=== PATIENT | female | born 1995 | race Caucasian/White ===

== ENCOUNTER 2022-02-11 07:25 | Inpatient (IN) ==
[2022-02-11] MEDS ORDERED: OXYTOCIN 30 UNITS/500 ML BAG IV PRN (09:16)
[2022-02-11 09:58] LABS: Hematocrit (blood only) 40.5 % (34.1-44.9); Hemoglobin 13.5 g/dl (12.0-16.0); Mean Corpuscular Hemoglobin 28.7 pg (25.0-34.0); Mean Corpuscular Hgb Conc 33.3 g/dL (32.0-36.0); Mean Corpuscular Volume 86.2 fL (80.0-100.0); Mean Platelet Volume 9.7 fL (9.4-12.3); Platelet Count 208 K/uL (130-400); RDW Standard Deviation 44.1 fL (36.4-46.3); White Blood Count 8.52 K/ul (4.8-10.8)
[2022-02-11] MEDS ORDERED: PENICILLIN G POTASSIUM 6 MU in DEXTROSE 5% 250 ML IV STA (10:11)
[2022-02-11] MEDS ORDERED: DINOPROSTONE 10 MG INSERT PV ONE (10:11)
--- NOTE | 2022-02-11 11:13 | History & Physical Report ---
Date of Service February 11, 2022 Assessment & Plan (1) Post-dates : Plan: Cervidil for cervical ripening (2) COVID-19 affecting in third trimester: Admission and Anticipated Discharge Date Admission Date: February 11, 2022 History of Present Illness Chief Complaint: induction of labor for post dates Primary Care Provider: MATHEW PCP 27 F P0000 at 41 weeks admitted for IOL for post dates . GBS is positive. Covid is positive. course unremarkable. Allergies Allergy/AdvReac Type Severity Reaction Status Date / Time watermelon Allergy Severe Anaphylaxis Verified 02/11/22 11:09 apple Allergy Intermediate Anaphylaxis Verified 02/11/22 11:09 Home Medications Medication Instructions Recorded Confirmed Type ferrous sulfate 27 mg iron tablet 27 mg PO DAILY 02/11/22 02/11/22 History iron,carbonyl 65 mg-vitamin C 125 1 tab PO DAILY 02/11/22 02/11/22 History mg tablet,delayed release (Vitron-C) prenat.vits,mp,[id number] 1 tab PO DAILY 02/11/22 02/11/22 History Patient History Medical History No pertinent past medical history Positive GBS test SARS-CoV-2 positive 02/08/2022 Surgical History [place] teeth extracted Family History Grandmother (Paternal) Breast cancer Other No known health problems Social History Smoking Status: Never smoker Hx Alcohol Use: No Hx Substance Use: No Preferred Language: Khmer Communication Ability: Effective Linen Tech Required: No Beliefs That Will Affect Care: None marital status: marital status details: Mike Mari Current Living Situation: Spouse current occupational status: employed 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 [employer] Other Information That Helps Us Care for You: No Feels Safe at Home: Yes Safety Concerns: Feels Safe At This Time Assistive Devices: None 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 neg Review of Systems All systems reviewed & are unremarkable except as noted in HPI & below Physical Exam Constitutional: WD/WN, vitals as above Eyes: PERRL, conjunctivae normal, anicteric sclerae Respiratory: normal respiratory effort, lungs clear to auscultation Cardiovascular: RRR, no murmur, no edema Gastrointestinal (Abdomen): normal bowel sounds, soft, nontender, no hepatosplenomegaly Inspection/Auscultation: abdomen normal to inspection Musculoskeletal: Extremities: extremities normal to inspection no edema Skin: no rashes, warm and dry Neurologic: patellar DTR's 2+ bilat, sensation intact Psychiatric: A+Ox3, euthymic affect Genitourinary: normal external appearance OB Exam Abdomen: + fundal height and + vertex Manual OB Exam: + cervical dilation 1 cm, + cervical effacement 50% and + station high OB Exam Monitor Tracing: + external FHT monitor used, + external uterine monitor used and + category I posterior and firm Cervidil 10 mg placed vaginally Results & Data ([facility]) Vital Signs (Past 12 Hours) Vital Signs Temp Pulse Resp BP 02/11/22 08:11 36.9 C 20 02/11/22 10:41 94 H 02/11/22 10:41 36.9 C 94 H 18 136/79 02/11/22 07:54 125 H 135/89 Laboratory Results Laboratory Results - last 72 hr 02/11/22 09:35 WBC 8.52 RBC 4.70 Hgb 13.5 Hct 40.5 MCV 86.2 MCH 28.7 MCHC 33.3 RDW Std Deviation 44.1 RDW Coeff of Yogi 14.0 Plt Count 208 MPV 9.7 Code Status & VTE Plan VTE Prophylaxis Plan VTE Prophylaxis will be ordered: No Monitoring External Monitor Cat 1 no contractions noted
[2022-02-11] MEDS: LACTATED RINGER'S 1,000 ML IV PRN ×3 (14:49→23:47)
[2022-02-11] MEDS: BUTORPHANOL TARTRATE 1 MG/ML VIAL IV PRN ×3 (15:55→20:27)
[2022-02-11] MEDS ORDERED: fentaNYL citrate 100 MCG/2 ML VIAL ONE (21:16)
[2022-02-11] MEDS ORDERED: ePHEDrine sulfate 50 MG/ML AMP ONE (21:16)
[2022-02-11] MEDS ORDERED: SODIUM CHLORIDE 0.9% INJ 10 ML VIAL ONE (21:16)
[2022-02-11] MEDS ORDERED: BUPIVACAINE 0.25% 30 ML VIAL ONE (21:16)
[2022-02-11] MEDS ORDERED: LIDOCAINE 2%/EPINEPHRINE 1:200,000 20 ML SDV ONE (21:16)
[2022-02-11] MEDS ORDERED: fentaNYL 2MCG/ML ROPIVACAINE 1.25MG/ML 100 ML BAG EPI ONE (21:17)
[2022-02-11] MEDS ORDERED: ePHEDrine sulfate 50 MG/ML AMP IV PRN (22:34)
[2022-02-11] MEDS ORDERED: NALBUPHINE HCL INJ 10 MG/ML AMP IV PRN (22:34)
[2022-02-11] MEDS ORDERED: ONDANSETRON INJ 2 MG/ML 2 ML VIAL IV PRN (22:34)
[2022-02-11] MEDS ORDERED: diphenhydrAMINE 50 MG/ML VIAL IV PRN (22:34)
[2022-02-11] MEDS ORDERED: NALOXONE HCL 1 MG in SODIUM CHLORIDE 0.9% 1000ML 1,000 ML IV PRN (22:34)
[2022-02-11] MEDS ORDERED: fentaNYL 2MCG/ML ROPIVACAINE 1.25MG/ML 100 ML BAG EPI PRN (22:34)
[2022-02-11] MEDS ORDERED: NALOXONE HCL 0.4 MG/1 ML VIAL/CARP IV PRN (22:34)
--- NOTE | 2022-02-11 22:34 | Anesthesiology Consultation ---
Date of Service February 11, 2022 Assessment & Plan ASA ASA2 Proposed Anesthesia Anesthesia Type: Labor Epidural Risk / Benefits Reviewed With: PT / POA / Parent / Guardian, Accepts Plan and Informed Consent Obtained History Height/Weight Height: 5 ft 6 in Weight: 96.615 kg Allergies Allergy/AdvReac Type Severity Reaction Status Date / Time watermelon Allergy Severe Anaphylaxis Verified 02/11/22 11:09 apple Allergy Intermediate Anaphylaxis Verified 02/11/22 11:09 Medications Home Medications Medication Instructions Recorded Confirmed Last Taken ferrous sulfate 27 mg iron tablet 27 mg PO DAILY 02/11/22 02/11/22 02/11/22 iron,carbonyl 65 mg-vitamin C 125 1 tab PO DAILY 02/11/22 02/11/22 02/11/22 mg tablet,delayed release (Vitron-C) prenat.vits,mp,[id number] 1 tab PO DAILY 02/11/22 02/11/22 02/11/22 Active Medications Generic Name Dose Route Start Last Admin Trade Name Freq PRN Reason Stop Dose Admin Butorphanol Tartrate 1 mg 02/11/22 15:06 02/11/22 20:27 Butorphanol Tartrate 1 Mg/Ml Vial IV 03/13/22 15:05 1 mg Q2HWA PRN Administration Pain Lactated Ringer's 1,000 mls @ 125 mls/hr 02/11/22 09:16 02/11/22 18:23 Lr IV 02/13/22 09:15 125 mls/hr .Q8H PRN Administration L&D Protocol Protocol Past Medical History Medical History Anemia No pertinent past medical history Positive GBS test SARS-CoV-2 positive 02/08/2022 Exercise / Class Metabolic Activity II 4-5 Yardwork/Stairs/Walk up hill Past Family History Family History Grandmother (Paternal) Breast cancer Other No known health problems Past Surgical History Surgical History [place] teeth extracted Past Anesthesia History No Hx of Anesthesia Complications and No Family Hx of Anesthesia Complications History of PONV No Hx of PONV and No Hx of Motion Sickness Social History Smoking Status: Never smoker Hx Alcohol Use: No Hx Substance Use: No Review of Systems denies fever/cough/ colds/ chest pain/ SOB/ ZIA denies ZIA Physical Exam Vital Signs Last Vital Signs Temp 36.9 C 02/11/22 14:45 Pulse 88 02/11/22 22:32 Resp 18 02/11/22 18:29 BP 122/71 02/11/22 22:32 Pulse Ox 95 02/11/22 22:28 ENMT Mouth: no TMJ abnormality and no dentition abnormality Thyromental Distance: > or= 3.5 Finger Breadths Mallampati Class: II Neck neck extension not limited Respiratory normal respiratory effort; no respiratory distress Auscultation: lungs clear to auscultation bilaterally Cardiovascular Rate/Rhythm: regular rate and regular rhythm Neurologic moves all extremities Psychiatric Orientation: alert and oriented x 3 Testing Laboratory Results 02/11/22 09:35
[2022-02-12] MEDS: PENICILLIN G POTASSIUM 3 MU in DEXTROSE 5% 100 ML IV PRN ×2 (01:21→05:18)
[2022-02-12] MEDS ORDERED: OXYTOCIN 30 UNITS/500 ML BAG IV PRN ×2 (04:27→10:34)
--- NOTE | 2022-02-12 07:46 | Obstetrical Progress Note ---
Date of Service February 12, 2022 Assessment & Plan Admission and Anticipated Discharge Date Admission Date: February 11, 2022 Subjective Patient is seen and examined I got sign out from Dr Hahn who admitted her for IOL for postdates. GBS+, COVID+, no symptoms of Covid She has been pushing since 05:50 am FHR categ I VE; head at +3 station, small caput visible at introitus with pushing Continue to monitor closely Anticipate Results & Data ([facility]) Vital Signs (Past 12 Hours) Vital Signs Temp Pulse Resp BP Pulse Ox 02/12/22 07:38 97 02/12/22 07:38 84 02/12/22 07:38 86 131/71 02/12/22 07:37 105 H 87 L 02/12/22 07:33 84 97 02/12/22 07:32 100 H 91 02/12/22 07:28 90 98 02/12/22 07:26 105 H 94 02/12/22 07:23 83 130/68 97 02/12/22 06:30 16 02/12/22 06:30 37.0 C 16 02/12/22 07:18 88 94 02/12/22 07:13 80 97 02/12/22 07:12 80 90 02/12/22 07:08 99 02/12/22 07:08 94 H 02/12/22 07:08 90 127/78 02/12/22 07:03 97 H 99 02/12/22 06:58 96 H 98 02/12/22 06:53 109 H 139/87 98 02/12/22 06:48 98 H 97 02/12/22 06:43 88 98 02/12/22 06:38 92 H 98 02/12/22 06:39 95 H 124/74 02/12/22 06:33 95 H 98 02/12/22 06:28 101 H 98 02/12/22 06:23 96 H 130/64 99 02/12/22 06:18 95 H 99 02/12/22 06:13 99 02/12/22 06:13 118 H 02/12/22 06:13 115 H 94 02/12/22 06:08 99 02/12/22 06:08 102 H 02/12/22 06:08 108 H 151/83 H 02/12/22 06:03 108 H 99 02/12/22 05:58 98 H 99 02/12/22 05:53 100 02/12/22 05:53 104 H 07 05:53 102 H 133/77 02/12/22 05:48 110 H 100 02/12/22 05:43 97 H 99 02/12/22 05:38 117 H 99 02/12/22 05:39 103 H 132/82 02/12/22 05:33 96 H 99 02/12/22 05:28 103 H 97 02/12/22 05:23 97 02/12/22 05:23 104 H 02/12/22 05:23 103 H 130/79 02/12/22 05:19 18 02/12/22 05:19 36.5 C 18 98 02/12/22 05:18 106 H 98 02/12/22 05:13 107 H 99 02/12/22 05:09 100 H 133/79 02/12/22 05:08 107 H 98 02/12/22 05:03 94 H 97 02/12/22 04:58 81 95 02/12/22 04:53 95 H 98 02/12/22 04:54 91 H 108/62 02/12/22 04:48 92 H 96 02/12/22 04:43 101 H 97 02/12/22 04:38 103 H 131/79 97 02/12/22 04:33 114 H 97 02/12/22 04:28 115 H 98 02/12/22 04:23 111 H 98 02/12/22 04:24 112 H 136/83 02/12/22 04:18 112 H 99 02/12/22 04:13 109 H 98 02/12/22 04:10 105 H 133/80 02/12/22 04:08 112 H 98 02/12/22 04:03 114 H 98 02/12/22 03:58 108 H 99 02/12/22 03:53 110 H 97 02/12/22 03:54 121 H 150/90 H 07 03:48 114 H 99 02/12/22 03:43 123 H 98 02/12/22 03:39 114 H 118/75 02/12/22 03:38 118 H 96 02/12/22 03:33 117 H 96 02/12/22 03:28 98 H 95 02/12/22 03:26 98 H 94 02/12/22 03:23 95 02/12/22 03:23 97 H 07 03:23 106 H 128/79 02/12/22 03:18 102 H 95 02/12/22 03:19 108 H 94 02/12/22 03:13 103 H 95 02/12/22 03:08 100 H 137/81 96 02/12/22 03:03 106 H 95 02/12/22 02:58 112 H 96 02/12/22 02:25 18 02/12/22 02:25 36.9 C 18 02/12/22 02:53 104 H 97 02/12/22 02:54 100 H 135/80 02/12/22 02:48 103 H 96 02/12/22 02:43 107 H 96 02/12/22 02:38 108 H 133/80 97 02/12/22 02:33 110 H 97 02/12/22 02:28 111 H 97 02/12/22 02:24 106 H 138/84 02/12/22 02:23 121 H 98 02/12/22 02:18 116 H 98 02/12/22 02:13 111 H 98 02/12/22 02:08 99 02/12/22 02:08 131 H 02/12/22 02:08 106 H 132/78 02/12/22 02:03 106 H 97 02/12/22 01:58 107 H 97 02/12/22 01:54 98 H 128/77 02/12/22 01:53 97 H 96 02/12/22 01:48 101 H 96 02/12/22 01:43 94 H 97 02/12/22 01:38 97 02/12/22 01:38 111 H 02/12/22 01:38 113 H 134/75 02/12/22 01:33 97 H 98 02/12/22 01:28 102 H 97 02/12/22 01:24 120 H 136/82 02/12/22 01:23 106 H 97 02/12/22 01:18 111 H 99 02/12/22 01:13 104 H 96 02/12/22 01:08 96 02/12/22 01:08 77 02/12/22 01:08 91 H 129/72 02/12/22 01:03 80 96 0722 00:58 81 95 02/12/22 00:53 80 123/70 95 02/12/22 00:48 82 96 02/12/22 00:43 85 96 02/12/22 00:38 88 121/69 98 02/12/22 00:36 79 94 02/12/22 00:33 80 95 02/12/22 00:30 81 94 02/12/22 00:28 79 96 02/12/22 00:25 73 94 02/12/22 00:23 83 121/75 96 02/12/22 00:18 94 02/12/22 00:18 74 02/12/22 00:18 78 94 02/12/22 00:13 76 96 02/12/22 00:12 77 94 02/12/22 00:08 95 02/12/22 00:08 81 02/12/22 00:08 78 112/68 02/11/22 22:35 16 02/11/22 22:35 36.8 C 16 02/11/22 23:50 16 02/11/22 23:50 36.8 C 16 02/12/22 00:06 77 94 02/12/22 00:03 81 95 02/12/22 00:01 80 94 02/11/22 23:58 95 02/11/22 23:58 77 02/11/22 23:54 77 02/11/22 23:54 113/69 02/11/22 23:53 96 02/11/22 23:53 73 02/11/22 23:48 96 02/11/22 23:48 76 02/11/22 23:43 97 02/11/22 23:43 76 02/11/22 23:38 98 02/11/22 23:38 85 02/11/22 23:38 90 02/11/22 23:38 121/75 02/11/22 23:33 97 02/11/22 23:33 100 H 02/11/22 23:28 99 02/11/22 23:28 102 H 02/11/22 23:24 94 02/11/22 23:24 88 02/11/22 23:23 94 02/11/22 23:23 84 02/11/22 23:23 93 H 02/11/22 23:23 120/75 02/11/22 23:18 94 02/11/22 23:18 90 02/11/22 23:17 94 02/11/22 23:17 85 02/11/22 23:13 93 02/11/22 23:13 83 02/11/22 23:09 85 02/11/22 23:09 117/71 02/11/22 23:08 93 02/11/22 23:08 86 02/11/22 23:03 94 02/11/22 23:03 87 02/11/22 22:58 95 02/11/22 22:59 94 02/11/22 22:58 85 02/11/22 22:59 83 02/11/22 22:53 96 02/11/22 22:53 90 02/11/22 22:53 92 H 02/11/22 22:53 119/78 02/11/22 22:48 96 02/11/22 22:48 82 02/11/22 22:43 96 02/11/22 22:43 86 02/11/22 22:38 98 02/11/22 22:38 98 H 02/11/22 22:38 121/79 02/11/22 22:36 85 02/11/22 22:36 120/71 02/11/22 22:33 96 02/11/22 22:33 93 H 02/11/22 22:34 99 H 02/11/22 22:34 128/73 02/11/22 22:32 88 02/11/22 22:32 122/71 02/11/22 22:30 101 H 02/11/22 22:30 133/76 02/11/22 22:28 95 02/11/22 22:28 88 02/11/22 22:28 86 02/11/22 22:28 129/66 02/11/22 22:26 86 02/11/22 22:26 127/68 02/11/22 22:23 97 02/11/22 22:23 103 H 02/11/22 22:24 88 02/11/22 22:24 136/71 02/11/22 22:23 104 H 02/11/22 22:23 132/70 02/11/22 22:22 100 H 02/11/22 22:22 137/73 02/11/22 22:19 108 H 02/11/22 22:19 139/75 02/11/22 22:18 97 02/11/22 22:18 100 H 02/11/22 22:15 96 H 02/11/22 22:15 139/72 02/11/22 22:13 97 02/11/22 22:13 113 H 02/11/22 22:13 135/71 02/11/22 22:12 109 H 02/11/22 22:12 141/74 H 02/11/22 22:08 99 02/11/22 22:08 107 H 02/11/22 22:03 99 02/11/22 22:03 106 H 02/11/22 21:58 99 02/11/22 21:58 111 H 02/11/22 21:53 98 02/11/22 21:53 99 H 02/11/22 21:48 96 02/11/22 21:48 103 H 02/11/22 21:46 102 H 02/11/22 21:46 129/72 02/11/22 21:43 98 02/11/22 21:43 96 H 02/11/22 21:38 97 02/11/22 21:38 98 H 02/11/22 21:33 96 02/11/22 21:33 105 H 02/11/22 21:33 122/70 02/11/22 20:34 93 H 02/11/22 20:34 124/63
--- NOTE | 2022-02-12 08:38 | Obstetrical Progress Note ---
Date of Service February 12, 2022 Assessment & Plan Admission and Anticipated Discharge Date Admission Date: February 11, 2022 Subjective Patient is seen and examined She has been pushing, FHR categ I VE; minimal change since last exam, OA Will push on her left side Continue to monitor Results & Data ([facility]) Vital Signs (Past 12 Hours) Vital Signs Temp Pulse Resp BP Pulse Ox 02/12/22 08:33 90 98 02/12/22 08:28 84 93 02/12/22 08:23 98 02/12/22 08:23 73 02/12/22 08:23 105 H 145/113 H 02/12/22 08:22 108 H 93 02/12/22 08:18 85 97 02/12/22 08:17 114 H 91 02/12/22 08:13 97 H 96 02/12/22 08:08 87 121/88 97 02/12/22 08:06 112 H 93 02/12/22 08:03 100 H 98 02/12/22 07:59 114 H 91 02/12/22 07:58 88 96 02/12/22 07:54 81 127/72 02/12/22 07:53 83 98 02/12/22 07:50 109 H 86 L 02/12/22 07:48 86 96 02/12/22 07:43 95 H 97 02/12/22 07:38 97 02/12/22 07:38 84 02/12/22 07:38 86 131/71 02/12/22 07:37 105 H 87 L 02/12/22 07:33 84 97 02/12/22 07:32 100 H 91 02/12/22 07:28 90 98 02/12/22 07:26 105 H 94 02/12/22 07:23 83 130/68 97 02/12/22 06:30 16 02/12/22 06:30 37.0 C 16 02/12/22 07:18 88 94 02/12/22 07:13 80 97 02/12/22 07:12 80 90 02/12/22 07:08 99 02/12/22 07:08 94 H 02/12/22 07:08 90 127/78 02/12/22 07:03 97 H 99 02/12/22 06:58 96 H 98 02/12/22 06:53 109 H 139/87 98 02/12/22 06:48 98 H 97 02/12/22 06:43 88 98 02/12/22 06:38 92 H 98 02/12/22 06:39 95 H 124/74 02/12/22 06:33 95 H 98 02/12/22 06:28 101 H 98 02/12/22 06:23 96 H 130/64 99 02/12/22 06:18 95 H 99 02/12/22 06:13 99 02/12/22 06:13 118 H 02/12/22 06:13 115 H 94 02/12/22 06:08 99 02/12/22 06:08 102 H 02/12/22 06:08 108 H 151/83 H 02/12/22 06:03 108 H 99 02/12/22 05:58 98 H 99 02/12/22 05:53 100 02/12/22 05:53 104 H 02/12/22 05:53 102 H 133/77 02/12/22 05:48 110 H 100 02/12/22 05:43 97 H 99 02/12/22 05:38 117 H 99 02/12/22 05:39 103 H 132/82 02/12/22 05:33 96 H 99 02/12/22 05:28 103 H 97 02/12/22 05:23 97 02/12/22 05:23 104 H 02/12/22 05:23 103 H 130/79 02/12/22 05:19 18 02/12/22 05:19 36.5 C 18 98 02/12/22 05:18 106 H 98 02/12/22 05:13 107 H 99 02/12/22 05:09 100 H 133/79 02/12/22 05:08 107 H 98 02/12/22 05:03 94 H 97 02/12/22 04:58 81 95 02/12/22 04:53 95 H 98 02/12/22 04:54 91 H 108/62 02/12/22 04:48 92 H 96 02/12/22 04:43 101 H 97 02/12/22 04:38 103 H 131/79 97 02/12/22 04:33 114 H 97 02/12/22 04:28 115 H 98 02/12/22 04:23 111 H 98 02/12/22 04:24 112 H 136/83 07/20/22 04:18 112 H 99 02/12/22 04:13 109 H 98 02/12/22 04:10 105 H 133/80 02/12/22 04:08 112 H 98 02/12/22 04:03 114 H 98 02/12/22 03:58 108 H 99 02/12/22 03:53 110 H 97 02/12/22 03:54 121 H 150/90 H 02/12/22 03:48 114 H 99 02/12/22 03:43 123 H 98 02/12/22 03:39 114 H 118/75 02/12/22 03:38 118 H 96 02/12/22 03:33 117 H 96 02/12/22 03:28 98 H 95 02/12/22 03:26 98 H 94 02/12/22 03:23 95 02/12/22 03:23 97 H 02/12/22 03:23 106 H 128/79 02/12/22 03:18 102 H 95 02/12/22 03:19 108 H 94 02/12/22 03:13 103 H 95 02/12/22 03:08 100 H 137/81 96 02/12/22 03:03 106 H 95 02/12/22 02:58 112 H 96 02/12/22 02:25 18 02/12/22 02:25 36.9 C 18 02/12/22 02:53 104 H 97 02/12/22 02:54 100 H 135/80 02/12/22 02:48 103 H 96 02/12/22 02:43 107 H 96 02/12/22 02:38 108 H 133/80 97 02/12/22 02:33 110 H 97 02/12/22 02:28 111 H 97 02/12/22 02:24 106 H 138/84 02/12/22 02:23 121 H 98 02/12/22 02:18 116 H 98 02/12/22 02:13 111 H 98 02/12/22 02:08 99 02/12/22 02:08 131 H 02/12/22 02:08 106 H 132/78 02/12/22 02:03 106 H 97 02/12/22 01:58 107 H 97 02/12/22 01:54 98 H 128/77 02/12/22 01:53 97 H 96 07/20/22 01:48 101 H 96 02/12/22 01:43 94 H 97 02/12/22 01:38 97 02/12/22 01:38 111 H 02/12/22 01:38 113 H 134/75 02/12/22 01:33 97 H 98 02/12/22 01:28 102 H 97 02/12/22 01:24 120 H 136/82 02/12/22 01:23 106 H 97 02/12/22 01:18 111 H 99 02/12/22 01:13 104 H 96 02/12/22 01:08 96 02/12/22 01:08 77 02/12/22 01:08 91 H 129/72 02/12/22 01:03 80 96 02/12/22 00:58 81 95 02/12/22 00:53 80 123/70 95 02/12/22 00:48 82 96 02/12/22 00:43 85 96 02/12/22 00:38 88 121/69 98 02/12/22 00:36 79 94 02/12/22 00:33 80 95 02/12/22 00:30 81 94 02/12/22 00:28 79 96 02/12/22 00:25 73 94 02/12/22 00:23 83 121/75 96 02/12/22 00:18 94 02/12/22 00:18 74 02/12/22 00:18 78 94 02/12/22 00:13 76 96 02/12/22 00:12 77 94 02/12/22 00:08 95 02/12/22 00:08 81 02/12/22 00:08 78 112/68 02/11/22 22:35 16 02/11/22 22:35 36.8 C 16 02/11/22 23:50 16 02/11/22 23:50 36.8 C 16 02/12/22 00:06 77 94 02/12/22 00:03 81 95 02/12/22 00:01 80 94 02/11/22 23:58 95 02/11/22 23:58 77 02/11/22 23:54 77 02/11/22 23:54 113/69 02/11/22 23:53 96 02/11/22 23:53 73 02/11/22 23:48 96 07/19/22 23:48 76 02/11/22 23:43 97 02/11/22 23:43 76 02/11/22 23:38 98 02/11/22 23:38 85 02/11/22 23:38 90 02/11/22 23:38 121/75 02/11/22 23:33 97 02/11/22 23:33 100 H 02/11/22 23:28 99 02/11/22 23:28 102 H 02/11/22 23:24 94 02/11/22 23:24 88 02/11/22 23:23 94 02/11/22 23:23 84 02/11/22 23:23 93 H 02/11/22 23:23 120/75 02/11/22 23:18 94 02/11/22 23:18 90 02/11/22 23:17 94 02/11/22 23:17 85 02/11/22 23:13 93 02/11/22 23:13 83 02/11/22 23:09 85 02/11/22 23:09 117/71 02/11/22 23:08 93 02/11/22 23:08 86 02/11/22 23:03 94 02/11/22 23:03 87 02/11/22 22:58 95 02/11/22 22:59 94 02/11/22 22:58 85 02/11/22 22:59 83 02/11/22 22:53 96 02/11/22 22:53 90 02/11/22 22:53 92 H 02/11/22 22:53 119/78 02/11/22 22:48 96 02/11/22 22:48 82 02/11/22 22:43 96 02/11/22 22:43 86 02/11/22 22:38 98 02/11/22 22:38 98 H 02/11/22 22:38 121/79 02/11/22 22:36 85 02/11/22 22:36 120/71 02/11/22 22:33 96 02/11/22 22:33 93 H 02/11/22 22:34 99 H 02/11/22 22:34 128/73 02/11/22 22:32 88 02/11/22 22:32 122/71 02/11/22 22:30 101 H 07/19/22 22:30 133/76 02/11/22 22:28 95 02/11/22 22:28 88 02/11/22 22:28 86 02/11/22 22:28 129/66 02/11/22 22:26 86 02/11/22 22:26 127/68 02/11/22 22:23 97 02/11/22 22:23 103 H 02/11/22 22:24 88 02/11/22 22:24 136/71 02/11/22 22:23 104 H 02/11/22 22:23 132/70 02/11/22 22:22 100 H 02/11/22 22:22 137/73 02/11/22 22:19 108 H 02/11/22 22:19 139/75 02/11/22 22:18 97 02/11/22 22:18 100 H 02/11/22 22:15 96 H 02/11/22 22:15 139/72 02/11/22 22:13 97 02/11/22 22:13 113 H 02/11/22 22:13 135/71 02/11/22 22:12 109 H 02/11/22 22:12 141/74 H 02/11/22 22:08 99 02/11/22 22:08 107 H 02/11/22 22:03 99 02/11/22 22:03 106 H 02/11/22 21:58 99 02/11/22 21:58 111 H 02/11/22 21:53 98 02/11/22 21:53 99 H 02/11/22 21:48 96 02/11/22 21:48 103 H 02/11/22 21:46 102 H 02/11/22 21:46 129/72 02/11/22 21:43 98 02/11/22 21:43 96 H 02/11/22 21:38 97 02/11/22 21:38 98 H 02/11/22 21:33 96 02/11/22 21:33 105 H 02/11/22 21:33 122/70
[2022-02-12] MEDS ORDERED: MINERAL OIL 30 ML UDC ONE (09:05)
[2022-02-12] MEDS ORDERED: LIDOCAINE 2% LOCAL 20 ML VIAL ONE (09:05)
[2022-02-12] MEDS: BUTORPHANOL TARTRATE 1 MG/ML VIAL IV PRN (10:07)
[2022-02-12] MEDS ORDERED: CLINDAMYCIN PHOS 900 MG/6 ML VIAL IV STA (10:09)
[2022-02-12] MEDS ORDERED: CLINDAMYCIN/D5W 900 MG/50 ML PREMIX BAG IV ONE (10:30)
[2022-02-12] MEDS ORDERED: bisacodyL 10 MG SUPP PR PRN (10:34)
[2022-02-12] MEDS ORDERED: HYDROCORTISONE ACETATE 25 MG SUPP PR PRN (10:34)
[2022-02-12] MEDS ORDERED: oxyCODONE/ACETAMINOPHEN 5mg/325mg TAB PO PRN (10:34)
[2022-02-12] MEDS ORDERED: METHYLERGONOVINE MALEATE 0.2 MG/ML AMP IM ONE (10:34)
[2022-02-12] MEDS ORDERED: miSOPROStoL 200 MCG TAB PR ONE (10:34)
[2022-02-12] MEDS ORDERED: MEASLES, MUMPS & RUBELLA VIRUS VIAL SQ ONE (10:34)
[2022-02-12] MEDS ORDERED: BENZOCAINE 20% AER SPR 82.5 GM CAN EXT PRN (10:34)
[2022-02-12] MEDS ORDERED: ACETAMINOPHEN 325 MG TAB PO PRN (10:34)
[2022-02-12] MEDS ORDERED: DIPHTHERIA/TETANUS/PERTUSSIS 0.5 ML SYR/VIAL IM ONE (10:34)
--- NOTE | 2022-02-12 11:46 | Delivery Summary ---
DATE OF DELIVERY: 02/12/2022 DETAILS OF DELIVERY: The patient was found to be fully dilated and desired to push. She pushed for about 3-1/2 hours in the negative pressure room since she was tested positive for COVID 19. She has been asymptomatic with no complaints. Vital signs stable, afebrile. Oxygen saturation has been within normal limits. heart rate had been category 1. After 3-1/2 hours of pushing, the patient was exhausted and wanted help. There was a caput around the head and the caput was visible on the perineum between contractions and more during contraction and pushing. After verbal consent was obtained, a mediolateral episiotomy was opened and then , a Kiwi vacuum was placed on the vertex 1-2 cm in front of small/posterior fontanelle to try to avoid the caput succedaneum. With the patient pushing, it was pulled for about 10 seconds and then it popped off from where the caput skin was. It was taken off completely, and then with the next 3 contractions and the patient pushing, head was delivered without difficulty. There was a nuchal cord around the neck x1, which was reduced and then shoulders were delivered with minimal traction. Baby was handed off to the mother where mouth and nose were suctioned and the cord was clamped x2 and cut at 1 minute delay. The baby was moving and crying vigorously at that point. Then, vagina and perineum were checked for lacerations. There was a right mediolateral episiotomy, which was opened earlier and then there was a hymenal laceration at 2 o'clock position, which extended into the lower vagina about 1-2 cm long. Rectal exam was done and the episiotomy was confirmed to be second- degree. The gloves were changed and then the episiotomy was repaired with 2-0 Vicryl starting from vaginal mucosa, bringing the bulbocavernosus muscles together and the skin in a subcuticular fashion. Excellent hemostasis was achieved and then the laceration at 2 o'clock at the hymen and the lower vagina was repaired with 2-0 Vicryl in a running fashion. There was some oozing around it and it was repaired with [id number] stitches until the bleeding stopped. Rest of the vagina and perineum was intact. The bladder was drained, about 300 mL of clear urine was obtained. Then, we waited about 35 minutes for the placenta which was partially detached in middle/ low uterine cavity. With manual examination, placenta was found to be partially still attached at the fundal portion. With the patient pushing and my hand holding the lower part of the placenta in the uterine cavity and twisting around clockwise position, the placenta was delivered without difficulty. It was complete and intact, and the uterus was explored and found to be empty, and the lower segment was cleared of all clots and debris. She was started on IV oxytocin and IM Methergine was given, and rectal Cytotec was placed. EBL was 400 mL and the fundus was firm. The mom and baby tolerated the procedure well. Sponge, needle, and instrument count was correct x2. Baby was a viable male infant, Apgars 8/8 and weight is 3970 gr. No complications happened and I was present during whole procedure. Job ID: [id number] MTDD
[2022-02-12] MEDS: METHYLERGONOVINE MALEATE 0.2 MG TAB PO SCH ×3 (12:44→20:12)
--- NOTE | 2022-02-12 13:11 | Anesthesia Procedure Note ---
Date of Service February 12, 2022 Anesthesia Post Epidural Note Vital Signs Vital Signs: Temp Pulse Resp BP Pulse Ox 36.5 C 88 16 118/81 97 02/12/22 10:25 02/12/22 12:25 02/12/22 11:25 02/12/22 12:02/12/22 10:18 Pain Intensity Abdomen: Pain Intensity: 0 Right Hip: Pain Intensity: 0 Notes Mental Status: alert / awake / arousable and participated in evaluation Nausea / Vomiting: adequately controlled Pain: adequately controlled Airway Patency, RR, SpO2: stable & adequate BP & HR: stable & adequate Hydration State: stable & adequate Neuraxial Anesthesia: was administered and sensory block is resolving Anesthetic Complications: no major complications apparent and Pt Satisfied with anesthetic care Epidural: Removed without complications and With tip intact
[2022-02-12] MEDS: miSOPROStoL 50 MCG TAB PO SCH (15:04)
[2022-02-12] MEDS: IBUPROFEN 600 MG TAB PO PRN ×2 (17:41→22:26)
[2022-02-12] MEDS: DOCUSATE SODIUM 100 MG CAP PO SCH (20:12)
[2022-02-13] MEDS: METHYLERGONOVINE MALEATE 0.2 MG TAB PO SCH ×3 (00:47→10:17)
[2022-02-13] MEDS: IBUPROFEN 600 MG TAB PO PRN ×3 (02:41→20:30)
[2022-02-13 07:04] LABS: Hematocrit (blood only) 28.6 % (34.1-44.9); Hemoglobin 9.7 g/dl (12.0-16.0); Mean Corpuscular Hemoglobin 29.5 pg (25.0-34.0); Mean Corpuscular Hgb Conc 33.9 g/dL (32.0-36.0); Mean Corpuscular Volume 86.9 fL (80.0-100.0); Mean Platelet Volume 10.2 fL (9.4-12.3); Platelet Count 183 K/uL (130-400); RDW Coefficient of Variation 14.1 % (11.5-14.5); RDW Standard Deviation 44.4 fL (36.4-46.3); Red Blood Count 3.29 M/uL (3.93-5.22); White Blood Count 13.63 K/ul (4.8-10.8)
[2022-02-13] MEDS: DOCUSATE SODIUM 100 MG CAP PO SCH ×2 (09:28→20:31)
[2022-02-13] MEDS: FERROUS SULFATE 325 MG TAB PO SCH (09:28)
[2022-02-13] MEDS: PRENATAL VITAMIN 1 TAB PO SCH (09:28)
--- NOTE | 2022-02-13 09:59 | Obstetrical Progress Note ---
Date of Service February 13, 2022 Subjective Ambulation: ambulating normally Voiding: no voiding problems Passing Gas:: Yes Diet Tolerance:: regular diet Lochia:: Small Feeding Type:: breast feeding Current Pain Level(1-10): 0 doing well plans for d/c in AM Physical Exam Constitutional WD/WN, vitals as above Gastrointestinal (Abdomen) Inspection/Auscultation: abdomen normal to inspection fundus firm below U. non-tender Musculoskeletal Extremities: extremities normal to inspection no edema. neg Susan's Skin no rashes, warm and dry Neurologic patellar DTR's 2+ bilat, sensation intact Results & Data ([facility]) Vital Signs (Past 12 Hours) Vital Signs Temp Pulse Resp BP Pulse Ox O2 Del Method 02/13/22 03:51 36.8 C 84 18 108/71 96 Room Air 02/12/22 23:49 36.8 C 98 H 20 108/72 96 Room Air Laboratory Results Laboratory Results - last 72 hr 02/11/22 02/13/22 02/13/22 09:35 05:40 05:40 WBC 8.52 13.63 H RBC 4.70 3.29 L Hgb 13.5 9.7 L D Hct 40.5 28.6 L MCV 86.2 86.9 MCH 28.7 29.5 MCHC 33.3 33.9 RDW Std Deviation 44.1 44.4 RDW Coeff of Yogi 14.0 14.1 Plt Count 208 183 MPV 9.7 10.2 Blood Type A Negative Antibody Screen NEGATIVE Screen Negative
[2022-02-13] MEDS ORDERED: bisacodyL 5 MG TABEC PO SCH (20:00)
[2022-02-14] MEDS: IBUPROFEN 600 MG TAB PO PRN ×3 (05:10→12:28)
--- NOTE | 2022-02-14 07:31 | Obstetrical Progress Note ---
Date of Service February 14, 2022 Assessment & Plan Admission and Anticipated Discharge Date Admission Date: February 11, 2022 Subjective Patient is seen and examined. She feels well, no complaints. Ambulating without dizziness Voiding without difficulty Tolerating regular diet with out N&V Bleeding is minimal No fever/ chills/ CP/ SOB/ N&V/ Leg pain Breast feeding without problems 02/13/22 Range/Units 05:40 Blood Type A Negative Antibody Screen NEGATIVE Screen Negative (Negative) Lab Results 02/11/22 02/13/22 02/13/22 Range/Units 09:35 05:40 05:40 WBC 8.52 13.63 H (4.8-10.8) K/ul RBC 4.70 3.29 L (3.93-5.22) M/uL Hgb 13.5 9.7 L D (12.0-16.0) g/dl Hct 40.5 28.6 L (34.1-44.9) % MCV 86.2 86.9 (80.0-100.0) fL MCH 28.7 29.5 (25.0-34.0) pg MCHC 33.3 33.9 (32.0-36.0) g/dL RDW Std Deviation 44.1 44.4 (36.4-46.3) fL RDW Coeff of Yogi 14.0 14.1 (11.5-14.5) % Plt Count 208 183 (130-400) K/uL MPV 9.7 10.2 (9.4-12.3) fL Blood Type A Negative Antibody Screen NEGATIVE Screen Negative (Negative) Vital Signs Temp Pulse Pulse Resp BP BP BP 02/14/22 04:30 36.9 C 84 18 113/73 02/14/22 00:14 37.0 C 81 18 103/61 02/13/22 20:14 36.5 C 97 H 16 106/67 02/13/22 15:30 36.6 C 94 H 16 107/68 02/13/22 11:37 36.6 C 88 18 118/81 02/13/22 09:40 36.6 C 98 H 18 111/72 Pulse Ox O2 Del Method 02/14/22 04:30 98 Room Air 02/14/22 00:14 99 Room Air 02/13/22 20:14 98 Room Air 02/13/22 15:30 Room Air 02/13/22 11:37 97 02/13/22 09:40 97 Room Air PE: General: Alert, orientedx3, NAD Abd: soft, NT, fundus firm, below Umbilicus Perineum intact, Lochia rubra minimal Ext; NT, no edema AP: 27 yo s/p , ppd# 2 VSS Afebrile doing well Continue routine care All questions were answered Discussed when to call D/C home , f/u in office Results & Data ([facility]) Vital Signs (Past 12 Hours) Vital Signs Temp Pulse Resp BP BP Pulse Ox O2 Del Method 02/14/22 04:30 36.9 C 84 18 113/73 98 Room Air 02/14/22 00:14 37.0 C 81 18 103/61 99 Room Air 02/13/22 20:14 36.5 C 97 H 16 106/67 98 Room Air
[2022-02-14 08:32] LABS: Basophils # (auto) 0.06 K/uL (0-0.2); Basophils % (auto) 0.6 %; Eosinophils # (auto) 0.15 K/uL (0-0.50); Eosinophils % (auto) 1.5 %; Hematocrit (blood only) 27.5 % (34.1-44.9); Hemoglobin 9.3 g/dl (12.0-16.0); Immature Granulocytes # (auto) 0.05 K/uL (0.00-0.02); Immature Granulocytes % (auto) 0.5 %; Lymphocytes # (auto) 2.19 K/uL (1.2-3.4); Lymphocytes % (auto) 22.4 %; Mean Corpuscular Hemoglobin 29.2 pg (25.0-34.0); Mean Corpuscular Hgb Conc 33.8 g/dL (32.0-36.0); Mean Corpuscular Volume 86.5 fL (80.0-100.0); Mean Platelet Volume 9.9 fL (9.4-12.3); Monocytes # (auto) 0.35 K/uL (0.24-0.82); Monocytes % (auto) 3.6 %; Neutrophils # (auto) 6.98 K/uL (1.4-6.5); Neutrophils % (auto) 71.4 %; Platelet Count 223 K/uL (130-400); RDW Coefficient of Variation 14.5 % (11.5-14.5); RDW Standard Deviation 45.3 fL (36.4-46.3); Red Blood Count 3.18 M/uL (3.93-5.22); White Blood Count 9.78 K/ul (4.8-10.8)
[2022-02-14] MEDS: PRENATAL VITAMIN 1 TAB PO SCH (08:54)
[2022-02-14] MEDS: FERROUS SULFATE 325 MG TAB PO SCH (08:54)
[2022-02-14] MEDS: DOCUSATE SODIUM 100 MG CAP PO SCH (08:54)
== END 2022-02-14 15:04 | disposition home or self-care (01) | DRG 805 ==
LOC: 4S1 07:25 → 4E1 02-12 13:30

== ENCOUNTER 2024-06-15 13:08 | Inpatient (IN) ==
[2024-06-15] MEDS ORDERED: OXYTOCIN 30 UNITS/NSS 30 UNITS/500 ML BAG IV PRN ×2 (15:29→23:47)
[2024-06-15] MEDS ORDERED: CALCIUM CARBONATE 500 MG CHEWABLE TAB PO PRN (15:29)
[2024-06-15] MEDS ORDERED: DINOPROSTONE 10 MG INSERT PV ONE (15:29)
[2024-06-15] MEDS ORDERED: ACETAMINOPHEN 325 MG TAB PO PRN ×2 (15:29→23:47)
[2024-06-15] MEDS ORDERED: LIDOCAINE 1% LOCAL 20 ML VIAL INFIL PRN (15:29)
[2024-06-15 16:06] LABS: Hematocrit (blood only) 38.2 % (37.0-47.0); Hemoglobin 12.9 g/dl (12.0-16.0); Mean Corpuscular Hemoglobin 27.8 pg (25.0-34.0); Mean Corpuscular Hgb Conc 33.8 g/dL (32.0-36.0); Mean Corpuscular Volume 82.3 fL (80.0-100.0); Mean Platelet Volume 9.2 fL (9.4-12.4); Platelet Count 223 K/uL (130-400); RDW Coefficient of Variation 15.9 % (11.5-14.5); RDW Standard Deviation 47.8 fL (36.4-46.3); Red Blood Count 4.64 M/uL (4.20-5.40); White Blood Count 7.88 K/ul (4.8-10.8)
[2024-06-15] MEDS: PENICILLIN GK 6 MU in SODIUM CHLORIDE 0.9% 250 ML IV STA (16:23)
[2024-06-15] MEDS: OXYTOCIN 30 UNITS/NSS 30 UNITS/500 ML BAG IV PRN (16:27)
[2024-06-15] MEDS: LACTATED RINGER'S 1,000 ML IV SCH (17:30)
--- NOTE | 2024-06-15 18:19 | History & Physical Report ---
Date of Service June 15, 2024 Assessment & Plan (1) Post-dates : Plan: 29-year-old -0-0-1 at 40 weeks and 6 days of gestation presenting today for scheduled induction of labor for postdates, Vital signs stable afebrile, heart rate reassuring, GBS positive, Cervix favorable, Plan to admit, monitor, labs, penicillin for GBS and oxytocin per protocol, epidural for pain when patient desires and then AROM when able, Continue to monitor closely, All questions were answered. (2) Positive GBS test: Admission and Anticipated Discharge Date Admission Date: June 15, 2024 History of Present Illness Primary Care Provider: NO PCP late entry from 4 PM, Patient is a 29-year-old -0-0-1 at 40 weeks and 6 days of gestation who was scheduled for induction of labor for postdates. She has no complaints, denies contractions, leakage of fluid, vaginal bleeding. She reports good movements. Her has been uncomplicated except GBS positive. She denies medical problems nor surgeries. She denies any history of smoking, alcohol or drug use. She denies any history of STDs including chlamydia, gonorrhea, herpes. She delivered a viable female in 2021 by myself with a vacuum assistance, patient and baby recovered well with no problems. Allergies Allergy/AdvReac Type Severity Reaction Status Date / Time watermelon Allergy Severe Anaphylaxis Verified 02/11/22 11:09 apple Allergy Intermediate Anaphylaxis Verified 02/11/22 11:09 Home Medications Medication Instructions Recorded Confirmed Type iron,carbonyl 65 mg-vitamin C 125 2 tab PO DAILY 02/11/22 06/15/24 History mg tablet,delayed release (Vitron-C) vits no.124-ferrous fum 1 tab PO DAILY@08 #90 tabs 02/14/22 06/15/24 Rx 27 mg iron-folic acid 800 mcg tablet ( Vitamin) Patient History Medical History Anemia SARS-CoV-2 positive 02/08/2022 Positive GBS test Surgical History [place] teeth extracted Family History Grandmother (Paternal) Breast cancer Other No known health problems Social History Smoking Status: Never smoker Hx Alcohol Use: No Hx Substance Use: No Preferred Language: Puerto Rican Communication Ability: Effective Pug Machine Operator Required: No Beliefs That Will Affect Care: None marital status: marital status details: Mike Mari Current Living Situation: Spouse Current Living Situation Comment: Lives with and son current occupational status: employed 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 [employer] Other Information That Helps Us Care for You: No Feels Safe at Home: Yes Safety Concerns: Feels Safe At This Time Assistive Devices: None Review of Systems as per Subjective / HPI Physical Exam Constitutional: WD/WN, vitals as above well developed, well nourished and comfortable Gastrointestinal (Abdomen): normal bowel sounds, soft, nontender, no hepatosplenomegaly Genitourinary: normal external appearance OB Exam Abdomen: + vertex Manual OB Exam: + cervical dilation 3 cm, + cervical effacement 30% and + station high OB Exam Monitor Tracing: + external uterine monitor used and + category I Results & Data Vital Signs (Past 12 Hours) Vital Signs Temp Pulse Resp BP 06/15/24 18:02 82 06/15/24 18:02 118/67 06/15/24 17:03 20 06/15/24 17:03 20 06/15/24 17:03 87 06/15/24 17:03 121/77 06/15/24 16:14 20 06/15/24 16:14 20 06/15/24 16:14 93 H 06/15/24 16:14 142/86 H 06/15/24 13:46 36.7 C 98 H 20 125/82 06/15/24 13:26 98 H 125/82 06/15/24 13:25 36.7 C Laboratory Results Lab Results 06/15/24 Range/Units 15:44 WBC 7.88 (4.8-10.8) K/ul RBC 4.64 (4.20-5.40) M/uL Hgb 12.9 (12.0-16.0) g/dl Hct 38.2 (37.0-47.0) % MCV 82.3 (80.0-100.0) fL MCH 27.8 (25.0-34.0) pg MCHC 33.8 (32.0-36.0) g/dL RDW Std Deviation 47.8 H (36.4-46.3) fL RDW Coeff of Yogi 15.9 H (11.5-14.5) % Plt Count 223 (130-400) K/uL MPV 9.2 L (9.4-12.4) fL Treponema pallidum Ab Negative (Negative) (1) Post-dates Post-term type: 40-42 weeks gestation Qualified Code(s): O48.0 - Post-term
[2024-06-15] MEDS ORDERED: ROPIVACAINE 0.5% PF 5 MG/ML 20 ML VIAL EPI PRN (18:39)
[2024-06-15] MEDS ORDERED: BUPIVACAINE 0.25% PF 30 ML VIAL EPI PRN (18:39)
[2024-06-15] MEDS ORDERED: ePHEDrine sulfate 50 MG/ML AMP IV PRN (18:39)
[2024-06-15] MEDS ORDERED: LIDOCAINE 2% MPF LOCAL 5 ML VIAL EPI PRN (18:39)
[2024-06-15] MEDS ORDERED: NALBUPHINE HCL INJ 10 MG/ML AMP IV PRN (18:39)
[2024-06-15] MEDS ORDERED: diphenhydrAMINE 50 MG/ML VIAL IV PRN (18:39)
[2024-06-15] MEDS ORDERED: NALOXONE HCL 0.4 MG/1 ML VIAL/CARP IV PRN (18:39)
[2024-06-15] MEDS ORDERED: NALOXONE HCL 1 MG in SODIUM CHLORIDE 0.9% 1,000 ML IV PRN (18:39)
[2024-06-15] MEDS ORDERED: fentANYL 2 MCG/ML BUPIVacaine 0.125%-NSS 100ML BAG EPI PRN (18:39)
[2024-06-15] MEDS ORDERED: SODIUM CHLORIDE 0.9% PF INJ 10 ML VIAL EPI PRN (18:39)
[2024-06-15] MEDS ORDERED: fentaNYL citrate PF 100 MCG/2 ML VIAL EPI PRN (18:39)
--- NOTE | 2024-06-15 18:39 | Anesthesiology Consultation ---
Date of Service June 15, 2024 Assessment & Plan (1) Encounter for pre-operative examination: Chart Review Chart Review: Patient NOT seen in Pre Admission Testing and Acceptable Risk for Labor Epidural Consults Requested none History Height/Weight Height: 5 ft 5 in Weight: 92.87 kg Allergies Allergy/AdvReac Type Severity Reaction Status Date / Time watermelon Allergy Severe Anaphylaxis Verified 02/11/22 11:09 apple Allergy Intermediate Anaphylaxis Verified 02/11/22 11:09 Medications Home Medications Medication Instructions Recorded Confirmed Last Taken iron,carbonyl 65 mg-vitamin C 125 2 tab PO DAILY 02/11/22 06/15/24 06/14/24 05:45 mg tablet,delayed release (Vitron-C) vits no.124-ferrous fum 1 tab PO DAILY@08 #90 tabs 02/14/22 06/15/24 06/14/24 05:45 27 mg iron-folic acid 800 mcg tablet ( Vitamin) Active Medications Generic Name Dose Route Start Last Admin Trade Name Freq PRN Reason Stop Dose Admin Oxytocin 30 units in 500 mls @ 8 mls/hr 06/15/24 15:58 06/15/24 18:00 Pitocin 30 Units/Nss IV 06/17/24 15:57 0.48 units/hr .Q24H PRN 8 mls/hr Labor Induction/Augmentation Titration Protocol 0.48 UNITS/HR Lactated Ringer's 1,000 mls @ 50 mls/hr 06/15/24 16:30 06/15/24 17:30 Lr IV 06/16/24 16:29 50 mls/hr .Q20H NILTON Administration Past Medical History Medical History Anemia SARS-CoV-2 positive 02/08/2022 Positive GBS test Past Family History Family History Grandmother (Paternal) Breast cancer Other No known health problems Past Surgical History Surgical History [place] teeth extracted Social History Smoking Status: Never smoker Hx Alcohol Use: No Hx Substance Use: No Physical Exam Vital Signs Last Vital Signs Temp 98.1 F 06/15/24 13:46 Pulse 74 06/15/24 18:37 Resp 20 06/15/24 17:03 BP 120/59 L 06/15/24 18:37 Pulse Ox 100 06/15/24 18:36 Testing Laboratory Results 06/15/24 15:44
[2024-06-15] MEDS: LIDOCAINE 2%/EPINEPHRINE 1:200,000 20 ML PF ONE (19:01)
[2024-06-15] MEDS: BUPIVACAINE 0.25% PF 30 ML VIAL ONE (19:01)
[2024-06-15] MEDS: fentANYL 2 MCG/ML BUPIVacaine 0.125%-NSS 100ML BAG ONE (19:02)
[2024-06-15] MEDS: PENICILLIN GK 3 MU in DEXTROSE 5% 100 ML IV PRN (20:03)
--- NOTE | 2024-06-15 20:38 | Obstetrical Progress Note ---
Date of Service June 15, 2024 Assessment & Plan Admission and Anticipated Discharge Date Admission Date: June 15, 2024 Subjective Patient is related. She received epidural for pain and now comfortable. second dose of penicillin is being given now. Vaginal exam: she is leaking urine from urethra, cervix is 4 to 5 cm dilated, 70% effaced, with a bulging bag, SROM and during the exam, light meconium, head at -2 station, heart rate category 1, Contractions every 2 to 3 minutes, oxytocin is at 14 milliunits/min, Continue to monitor closely, Anticipate Results & Data Vital Signs (Past 12 Hours) Vital Signs Temp Pulse Resp BP Pulse Ox 06/15/24 20:31 100 06/15/24 20:31 72 06/15/24 20:26 99 06/15/24 20:26 71 06/15/24 20:23 71 06/15/24 20:23 114/58 L 06/15/24 20:21 100 06/15/24 20:21 70 06/15/24 20:16 100 06/15/24 20:16 69 06/15/24 20:11 99 06/15/24 20:11 79 06/15/24 20:10 79 06/15/24 20:10 104/58 L 06/15/24 20:06 100 06/15/24 20:06 80 06/15/24 20:01 99 06/15/24 20:01 89 06/15/24 20:00 16 06/15/24 20:00 16 06/15/24 19:56 100 06/15/24 19:56 100 H 06/15/24 19:53 69 06/15/24 19:53 131/64 06/15/24 19:51 97 06/15/24 19:51 71 06/15/24 19:46 96 06/15/24 19:46 72 06/15/24 19:41 97 06/15/24 19:41 78 06/15/24 19:38 91 H 06/15/24 19:38 126/77 06/15/24 19:36 98 06/15/24 19:36 88 06/15/24 19:31 97 06/15/24 19:31 69 06/15/24 19:30 18 06/15/24 19:30 36.7 C 18 06/15/24 19:26 98 06/15/24 19:26 83 06/15/24 19:22 127/63 06/15/24 19:21 98 06/15/24 19:21 91 H 06/15/24 19:20 81 06/15/24 19:20 127/55 L 06/15/24 19:18 69 06/15/24 19:18 118/63 06/15/24 19:16 96 06/15/24 19:16 77 06/15/24 19:16 81 06/15/24 19:16 126/70 06/15/24 19:14 75 06/15/24 19:14 114/68 06/15/24 19:12 85 06/15/24 19:12 122/64 06/15/24 19:11 98 06/15/24 19:11 82 06/15/24 19:10 87 06/15/24 19:10 128/81 06/15/24 19:08 127/82 06/15/24 19:04 81 06/15/24 19:04 127/82 06/15/24 19:02 93 H 06/15/24 19:02 132/85 06/15/24 19:01 99 06/15/24 19:01 85 06/15/24 19:00 86 06/15/24 19:00 146/84 H 06/15/24 18:58 78 06/15/24 18:58 141/87 H 06/15/24 18:56 100 06/15/24 18:56 86 06/15/24 18:51 100 06/15/24 18:51 99 H 06/15/24 18:46 100 06/15/24 18:46 80 06/15/24 18:41 100 06/15/24 18:41 80 06/15/24 18:37 74 06/15/24 18:37 120/59 L 06/15/24 18:36 100 06/15/24 18:36 77 06/15/24 18:02 82 06/15/24 18:02 118/67 06/15/24 17:03 20 06/15/24 17:03 20 06/15/24 17:03 87 06/15/24 17:03 121/77 06/15/24 16:14 20 06/15/24 16:14 20 06/15/24 16:14 93 H 06/15/24 16:14 142/86 H 06/15/24 13:46 36.7 C 98 H 20 125/82 06/15/24 13:26 98 H 125/82 06/15/24 13:25 36.7 C
[2024-06-15] MEDS: LIDOCAINE 2%/EPINEPHRINE 1:200,000 20 ML PF EPI STA (21:51)
[2024-06-15] MEDS: fentaNYL citrate PF 100 MCG/2 ML VIAL EPI STA (21:51)
[2024-06-15] MEDS: ePHEDrine sulfate 50 MG/ML AMP ONE (21:51)
[2024-06-15] MEDS: fentaNYL citrate PF 100 MCG/2 ML VIAL ONE (21:51)
[2024-06-15] MEDS: BUPIVACAINE 0.25% PF 30 ML VIAL EPI STA (21:51)
[2024-06-15] MEDS: SODIUM CHLORIDE 0.9% PF INJ 10 ML VIAL ONE (21:51)
[2024-06-15] MEDS: SODIUM CHLORIDE 0.9% PF INJ 10 ML VIAL EPI STA (21:52)
[2024-06-15] MEDS ORDERED: BENZOCAINE 20% SPRY 85 APPLN/85 GM CAN EXT PRN (23:47)
[2024-06-15] MEDS ORDERED: DIPHTHER/TETAN/PERTUS Vaccine (Tdap, Adol/Adult) 0.5mL IM ONE (23:47)
[2024-06-15] MEDS ORDERED: bisacodyL 10 MG SUPP PR PRN (23:47)
[2024-06-15] MEDS ORDERED: HYDROCORTISONE ACETATE 25 MG SUPP PR PRN (23:47)
[2024-06-15] MEDS ORDERED: MEASLES, MUMPS & RUBELLA VIRUS VACCINE (MMR) 0.5ML VIAL SQ ONE (23:47)
[2024-06-15] MEDS ORDERED: oxyCODONE/ACETAMINOPHEN 5mg/325mg TAB PO PRN (23:47)
--- NOTE | 2024-06-15 23:51 | Delivery Summary ---
Vaginal Delivery Summary Date of Service June 15, 2024 Vaginal Delivery Summary Patient was found to be fully dilated and desired to push. She pushed for about 10 min and delivered the head and then shoulders with minimal traction. The baby was handed off to the mother. The cord was clampedx2 and cut. The vagina and perineum were checked and found to have 2nd degree perineal laceration. The vaginal mucosa was repaired with 2/0 vicryl and skin on subcuticular fashion. There was a 1st degree laceration at the clitoris that was repaired with 3-0 Vicryl on SH needle. The placenta was delivered spontaneously as intact and complete. The uterus was explored and found to be empty. QBL was 288 ml. The fundus was firm The baby was a viable Female infant, Apgars 8/9, the weight is pending. The mother and the baby tolerated the procedure well. No complications happened and I was present during whole procedure.
[2024-06-16] MEDS: IBUPROFEN 600 MG TAB PO PRN (05:28)
--- NOTE | 2024-06-16 06:18 | Anesthesia Procedure Note ---
Date of Service June 16, 2024 Anesthesia Post Epidural Note Vital Signs Vital Signs: Temp Pulse Resp BP Pulse Ox O2 Del Method 97.9 F 83 16 129/81 98 Room Air 06/16/24 03:02 06/16/24 03:02 06/16/24 03:02 06/16/24 03:02 06/15/24 23:21 06/16/24 03:02 Pain Intensity Abdomen: Pain Intensity: 1 Notes Mental Status: alert / awake / arousable and participated in evaluation Nausea / Vomiting: adequately controlled Pain: adequately controlled Airway Patency, RR, SpO2: stable & adequate BP & HR: stable & adequate Hydration State: stable & adequate Neuraxial Anesthesia: was administered and sensory block is resolving Anesthetic Complications: no major complications apparent and Pt Satisfied with anesthetic care Epidural: Removed without complications and With tip intact
[2024-06-16 06:28] LABS: Hematocrit (blood only) 34.4 % (37.0-47.0); Hemoglobin 11.7 g/dl (12.0-16.0); Mean Corpuscular Hemoglobin 27.9 pg (25.0-34.0); Mean Corpuscular Volume 82.1 fL (80.0-100.0); Mean Platelet Volume 9.5 fL (9.4-12.4); Platelet Count 202 K/uL (130-400); RDW Coefficient of Variation 15.7 % (11.5-14.5); RDW Standard Deviation 46.9 fL (36.4-46.3); Red Blood Count 4.19 M/uL (4.20-5.40); White Blood Count 11.08 K/ul (4.8-10.8)
[2024-06-16] MEDS: FERROUS SULFATE 325 MG TAB PO SCH (07:26)
[2024-06-16] MEDS: PRENATAL VITAMIN 1 TAB PO SCH (07:26)
[2024-06-16] MEDS: DOCUSATE SODIUM 100 MG CAP PO SCH (07:26)
--- NOTE | 2024-06-16 11:41 | Obstetrical Progress Note ---
Date of Service June 16, 2024 Subjective Ambulation: ambulating normally Voiding: no voiding problems Passing Gas:: Yes Diet Tolerance:: regular diet Feeding Type:: breast feeding Current Pain Level(1-10): 0 doing well Physical Exam Constitutional WD/WN, vitals as above Gastrointestinal (Abdomen) Inspection/Auscultation: abdomen normal to inspection abdomen soft and non-tender Musculoskeletal Extremities: extremities normal to inspection Neurologic patellar DTR's 2+ bilat, sensation intact Psychiatric A+Ox3, euthymic affect Results & Data Vital Signs (Past 12 Hours) Vital Signs Temp Pulse Pulse Resp BP BP Pulse Ox 06/16/24 07:25 36.4 C L 70 16 125/81 98 06/16/24 03:02 36.6 C 83 16 129/81 06/16/24 01:30 18 06/16/24 01:29 75 116/63 06/16/24 01:18 67 109/59 L 06/16/24 01:03 71 110/64 06/16/24 01:00 16 06/16/24 00:48 70 115/68 06/16/24 00:33 65 115/67 06/16/24 00:30 18 06/16/24 00:18 72 126/67 06/16/24 00:15 16 06/16/24 00:03 76 123/71 06/16/24 00:00 16 06/15/24 23:48 80 06/15/24 23:48 124/69 06/15/24 23:45 18 O2 Del Method 06/16/24 07:25 Room Air 06/16/24 03:02 Room Air 06/16/24 01:30 06/16/24 01:29 06/16/24 01:18 06/16/24 01:03 06/16/24 01:00 06/16/24 00:48 06/16/24 00:33 06/16/24 00:30 06/16/24 00:18 06/16/24 00:15 06/16/24 00:03 06/16/24 00:00 06/15/24 23:48 06/15/24 23:48 06/15/24 23:45 Laboratory Results all Laboratory Results - last 72 hr 06/15/24 06/16/24 15:44 05:29 WBC 7.88 11.08 H RBC 4.64 4.19 L Hgb 12.9 11.7 L Hct 38.2 34.4 L MCV 82.3 82.1 MCH 27.8 27.9 MCHC 33.8 34.0 RDW Std Deviation 47.8 H 46.9 H RDW Coeff of Yogi 15.9 H 15.7 H Plt Count 223 202 MPV 9.2 L 9.5 Treponema pallidum Ab Negative
--- OUTSIDE RECORDS SUMMARY | 2024-06-16 14:59 | External Medical Summary | Summary of Care ---
Author Name Unknown Organization [facility] Address [address] [place] [address] Phone [phone] Care Team Providers Care Catalyst Operator Gasoline Name Role Phone Unavailable Primary Care Provider Unavailabl e Reason for Visit * Reason Comments Return Visit Encounter Details Date Type Department Care Team (Late st Contact Info) Description 05/31/2024 2:15 PM EST Office Visit Gynecology/Obstetric s [facility] [address] [place] [phone] Elif Causey CRNP [address] [place] [phone] Encounter for supervision of other normal , unspecified trimester*; Rh negative, antepartum; Obesity in , antepartum; Positive GBS test Allergies Active Allergy Reactions Criticality Noted Date Comments No Known Drug Allergy 08/12/2004 documented as of this encounter (statuses as of 05/31/2024) Medications Medication Sig Dispensed Refills Start Date End Date Status Multi-Day Vitamins Oral Tablet Take by mouth 1 Tablet in the morning. Active Vitron-C 65-125 MG Oral Tablet (Iron-Vitamin C 65-125 mg per tab) Take 1 Tablet by mouth in the morning. Active documented as of this encounter (statuses as of 05/31/2024) Active Problems Problem Noted Date Diagnosed Date Positive GBS test 05/20/2024 Overview: Results for orders placed or performed in visit on 05/13/24 GROUP B STREP CULTURE/PCR Specimen: Vaginal Rectal; Swab Result Value Ref Range Group B Strep PCR Result Positive (A) Negative GBS GBSCt 15.6 GBS SPCCt 0.0 Encounter for supervision of other normal , unspecified trimester 12/18/2023 Normal intrauterine , antepartum 2023 Obesity in , antepartum 11/16/2023 Last Assessment & Plan: BMI 30.42 at [facility] Class 1 Rh negative, antepartum 07/01/2021 Overview: Rhogam shot 10/08/23 for 1st tri bleeding Antepartum anemia complicating 021 Overview: HGB 11.2 at [facility], rx iron Acne 10/06/2012 Other allergic rhinitis Overview: ICD-10 update of inactive term Estimated Date of Delivery Comme nts Yes 06/09/2024 Based on last me nstrual period of 09/03/2023 (Exact Date) documented as of this encounter (statuses as of 05/31/2024) Resolved Problems Problem Noted Date Diagnosed Date Resolved Date COVID-19 affecting in third trimester 02/10/2022 03/28/2022 GBS (group B Streptococcus c duran), +RV culture, currently 01/10/2022 03/28/2022 Disorder of placenta in second trimester 10/04/2021 12/05/2021 Rubella non-immune status, antepartum 07/01/2021 03/28/2022 Supervision of normal first 06/28/2021 03/28/2022 Last Assessment & Plan: rhogham given at 28wks 11/13/2021 Suri Galvan LPN Vaginal bleeding in 06/16/2021 06/28/2021 documented as of this encounter (statuses as of 05/31/2024) Immunizations Name Administration Dates Next Due Covid-19 Ad26, Single Dose (Rocio/J&J) 03/01/2021 Hepatitis B, 20+ yrs 1994,1994,01/30 Meningococcal Conjugate Vacc ine (Menactra/Menveo) 01/23/2010 Meningococcal MCV4P Conjugat e Vaccine (Menactra) 01/23/2010 PPD 02/21/2002 RSV Vac., Bivalent, Perfusio n F, Pf,0.5 Ml (Abrysvo) 04/20/2024 TDAP (age 10 and older)(Boostrix) 2023,11/25/2021,11/13/2021,11/07 Varicella Vaccine (Chicken Pox) 01/23/2010 documented as of this encounter Social History Tobacco Use Types Packs/Day Years Used Date Smoking Tobacco: Never Smokeless Tobacco: Never Alcohol Use Standard Drinks/Week Comments No 0 (1 standard drink = 0.6 oz pur e alcohol) PHQ-2 Answer Date Recorded PHQ-2 Score 0 05/28/2020 Hunger Vital Sign Answer Date Recorded Within the past 12 months, y ou worried that your food would run out before you got the money to buy more. Never true 01/07/20 24 Within the past 12 months, t he food you bought just didn't last and you didn't have money to get more. Never true 01/07/2024 [place] Depression Scale Answer Date Recorded [place] Depression Scale Total 7 04/20/2024 The thought of harming myself has occurred to me . Never 04/20/2024 Childcare Answer Date Recorded Do you feel overwhelmed with taking care of a child, family member or friend? No 01/07/2024 Does your family need help f inding childcare? (Household - for ages 0-17 years) Not on file 01/07/2024 Clothing Answer Date Recorded Have you been unable to get clothing when it was really needed? No 01/07/2024 Is your family able to get c lothes or diapers when needed? (Household - for ages 0-17 years) Not on file 01/07/2024 Personal Safety Answer Date Recorded Do you feel unsafe or have concerns for your saf ety? No 01/07/2024 Do you have concerns for you r family's safety? (Household - for ages 0-17 years) Not on file 01/07/2024 Utilities Answer Date Recorded Do you have trouble paying y our heating, water, or electric bill? No 01/07/2024 Is your family able to pay t he heat, water, or electric bill? (Household - for ages 0-17 years) Not on file 01/07/2024 Does your family have access to good internet? (Household - for ages 0-17 years) Not on file 01/07/2024 Employment Status Answer Date Recorded Are you unemployed or without regular income? No 01/07/2024 Does the household have a re gular source of income? (Household - for ages 0-17 years) Not on file 01/07/2024 Social Connections Answer Date Recorded How often do you feel lonely or isolated from those around you? Sometimes 01/07/2024 Financial Resource Strain Answer Date R ecorded Do you have any trouble payi ng for your medications, or do you think you might in the future? No 01/07/2024 Does your family have troubl e paying for medicine? (Household - for ages 0-17 years) Not on file 01/07/2024 Transportation Needs Answer Date Record ed READ ONLY Do you have troubl e getting a ride to medical visits or work? Never True 01/07/2024 Does your family have a hard time getting a ride to doctors visits? (Household - for ages 0-17 years) Not on file 01/07/2024 Has lack of transportation k ept you from medical appointments, meetings, work, or from getting things needed for daily living? Check all that apply. (Adult - for ages 18 years and over) Not on file 01/07/2024 Do you (or your family) have trouble finding or paying for a ride (transportation)? (Household - for ages 0-17 years) Not on file 01/07/2024 Housing Stability Answer Date Recorded Do you currently live in a s helter or have no steady place to sleep at night? No 01/07/2024 READ ONLY Do you think you a re at risk of becoming homeless? No 01/07/2024 Does your family worry about paying for your home or becoming homeless? (Household - for ages 0-17 years) Not on file 0 01/07/2024 Are you homeless or worried that you might be in the future? (Adult - for ages 18 years and over) Not on file Are you (or your family) samreen eless or worried that you might be in the future? (Household - for ages 0-17 years) Not on file Food Insecurity Answer Date Recorded Do you need food for this week? No 01/07/2024 Are you able to get enough f ood for your family? (Household - for ages 0-17 years) Not on file 01/07/2024 Does your family need food t his week? (Household - for ages 0-17 years) Not on file 01/07/2024 Do you always have enough fo od for your family? (Household - for ages 0-17 years) Not on file 01/07/2024 Estimated Date of Delivery Comme nts Yes 06/09/2024 Based on last me nstrual period of 09/03/2023 (Exact Date) Sex and Gender Information Value Date Recorded Sex Assigned at Female 11/13/2021 3:52 PM EDT Gender Identity Female 11/13/2021 3:52 PM EDT Sexual Orientation Straight 11/13/2021 3: 52 PM EDT Job Start Date Occupation Industry Not on file Not on file Not on file documented as of this encounter Last Filed Vital Signs Vital Sign Reading Time Taken Comments Blood Pressure 128/78 05/31/2024 2:10 PM EST Pulse - - Temperature - - Respiratory Rate - - Oxygen Saturation - - Inhaled Oxygen Concentration - - Weight 92.8 kg (204 lb 9.6 oz) 05/31/2024 2:10 P M EST Height - - Body Mass Index 34.05 05/27/2024 4:07 PM EDT documented in this encounter Progress Notes * Elif Causey CRNP - 05/31/2024 2:23 PM EST 38w5d No concerns. Baby is active. No contractions, bleeding, LOF. IOL scheduled. CIRO Lares * Jenny Coronado CMA - 05/31/2024 2:10 PM EST 38w5d Denies any concerns documented in this encounter Plan of Treatment Upcoming Encounters Date Type Department Care Team (Late st Contact Info) Description 06/08/2024 3:15 PM EST Office Visit Gynecology/Obstetrics [facility] [address] [place] [phone] Elif Causey CRNP [address] [place] [phone] Health Maintenance Due Date Last Done Comments Depression Screening 05/28/2021 05/28/2020 HPV/Co-Test 01/30/2024 COVID-19 Vaccine ( season) 2024 03/01/2021 Influenza Vaccine (FLU shot) (#1) 2024 Cervical Cancer Screening 04/07/2026 Pap Smear 04/07/2026 04/07/2023, 06/27, 10/21/2017 DTap/Tdap Vaccines (10 - Td or Tdap) 03/10/2034 03/10/2024, 11/25/2021, 11/13/2021, Additional history exists Hepatitis B Vaccine Completed 1994, 1994, 1994, Additional history exists MENINGOCOCCAL (MENACTRA/MENVEO) Aged Out 01/23/2010, 01/23/2010 No longer eligibl e based on patient's age to complete this topic HPV (Gardasil) Vaccine Aged Out No lo nger eligible based on patient's age to complete this topic Pneumococcal Vaccine: Pediatrics (0 to 5 Years) and At-Risk Patients (6 to 64 Years) Aged Out No longer eligible based on patient's age to complete this topic documented as of this encounter Medical Devices Not on filedocumented as of this encounter Visit Diagnoses Diagnosis Encounter for supervision of other normal , unspecified trimester- Primary Rh negative, antepartum Rhesus isoimmunization affecting management of mother, antepartum condition Obesity in , antepartum Obesity complicating , childbirth, or the puerperium, antepartum condition or complication Positive GBS test documented in this encounter
--- OUTSIDE RECORDS SUMMARY | 2024-06-16 15:00 | External Medical Summary | Summary of Care ---
Author Name Unknown Organization [facility] Address [address] [place] [address] Phone [phone] Care Team Providers Care Train Caller Name Role Phone Unavailable Primary Care Provider Unavailabl e Reason for Visit * Reason Comments Return Visit Encounter Details Date Type Department Care Team (Latest Contact Info) Description 04/20/2024 4:30 PM EDT Office Visit Gynecology/Obstetric s Kristina Childress [address] [place] [address] Marielena Ramirez PA-C [address] [place] [address] Encounter for supervision of other normal , unspecified trimester*; Rh negative, antepartum; Obesity in , antepartum; Encounter for prophylactic immunotherapy for respiratory syncytial virus (RSV) Allergies Active Allergy Reactions Criticality Noted Date Comments No Known Drug Allergy 08/12/2004 documented as of this encounter (statuses as of 04/20/2024) Medications Medication Sig Dispensed Refills Start Date End Date Status Multi-Day Vitamins Oral Tablet Take by mouth 1 Tablet in the morning. Active Vitron-C 65-125 MG Oral Tablet (Iron-Vitamin C 65-125 mg per tab) Take 1 Tablet by mouth in the morning. Active documented as of this encounter (statuses as of 04/20/2024) Active Problems Problem Noted Date Diagnosed Date Encounter for supervision of other normal , unspecified trimester 12/18/2023 Normal intrauterine , antepartum 2023 Obesity in , antepartum 11/16/2023 Last Assessment & Plan: BMI 30.42 at [facility] Class 1 Rh negative, antepartum 07/01/2021 Overview: Rhogam shot 10/08/23 for 1st tri bleeding Antepartum anemia complicating 021 Overview: HGB 11.2 at [facility], rx iron Acne 10/06/2012 Other allergic rhinitis Overview: ICD-10 update of inactive term Estimated Date of Delivery Comme nts Yes 06/09/2024 Based on last me nstrual period of 09/03/2023 (Exact Date) documented as of this encounter (statuses as of 04/20/2024) Resolved Problems Problem Noted Date Diagnosed Date Resolved Date COVID-19 affecting in third trimester 02/10/2022 03/28/2022 GBS (group B Streptococcus c arrier), +RV culture, currently 01/10/2022 03/28/2022 Disorder of placenta in second trimester 10/04/2021 12/05/2021 Rubella non-immune status, antepartum 07/01/2021 03/28/2022 Supervision of normal first 06/28/2021 03/28/2022 Last Assessment & Plan: rhogham given at 28wks 11/13/2021 Suri Galvan LPN Vaginal bleeding in 06/16/2021 06/28/2021 documented as of this encounter (statuses as of 04/20/2024) Immunizations Name Administration Dates Next Due Covid-19 [...] money to get more. Never true 01/07/2024 [place] Depression Scale Answer Date Recorded [place] Depression Scale Total 6 11/16/2023 The thought of harming myself has occurred to me . Never 11/16/2023 Childcare Answer Date Recorded Do you feel [...] Sign Reading Time Taken Comments Blood Pressure 114/72 04/20/2024 4:17 PM EDT Pulse - - Temperature - - Respiratory Rate - - Oxygen Saturation - - Inhaled Oxygen Concentration - - Weight 88.9 kg (196 lb) 04/20/2024 4:17 PM EDT Height 165.1 cm (5' 5") 04/20/2024 4:17 PM EDT Body Mass Index 32.62 04/20/2024 4:17 PM EDT documented in this encounter Progress Notes * Marielena Ramirez PA-C - 04/20/2024 4:35 PM EDT 32w6d No concerns. Becoming more uncomfortable. Denies VB, LOF, contractions. Pos fm. Counseled on flu vaccine. Patient declines. Would like RSV vaccine today. Pt states not a fan of needles and flu has already passed through household so does not want vaccination. RTC in 2 weeks Marielena Ramirez PA-C\\ documented in this encounter Nursing Notes * Tabitha Guillaume LPN - 04/20/2024 4:36 PM EDT Patient here for rsv injection. Patient doing well no complaints. Injection given IM as ordered. Patient tolerated well. Patient to follow up as directed. Patient instructed to call if any complications. Patient verbalized understanding of instructions given and her follow up appt for [facility] Injection site: Left Deltoid Medication Source: Dispensed stock medication * Tabitha Guillaume LPN - 04/20/2024 4:22 PM EDT 32w6d documented in this encounter Plan of Treatment Upcoming Encounters Date Type Department Care Team (Late st Contact Info) Description 05/06/2024 1:30 PM EDT Office Visit Gynecology/Obstetrics [facility] [address] [place] [address] Elif Causey CRNP [address] [place] [address] 05/20/2024 4:30 PM EDT Office Visit Gynecology/Obstetrics [facility] [address] [place] [address] Marielena Ramirez PA-C [address] [place] [address] Health Maintenance Due Date Last Done Comments [...] or the puerperium, antepartum condition or complication Encounter for prophylactic immunotherapy for respiratory syncytial virus (RSV) documented in this encounter
--- OUTSIDE RECORDS SUMMARY | 2024-06-16 15:00 | External Medical Summary | Summary of Care ---
Author Name Unknown Organization [facility] Address [address] [place] [address] Phone [phone] Care Team Providers Care Account Support Rep Name Role Phone Unavailable Primary Care Provider Unavailabl e Reason for Visit * Reason Onset Date Comments Test Results 04/13/2024 Encounter Details Date Type Department Care Team (Late st Contact Info) Description 04/13/2024 Telephone Gynecology/Obstetrics [facility] [address] [facility] [place] [address] Trudy Manuel PA-C [address] [facility] [place] [address] Test Results Allergies Active Allergy Reactions Criticality Noted Date Comments No Known Drug Allergy 08/12/2004 documented as of this encounter (statuses as of 04/13/2024) Medications Medication Sig Dispensed Refills Start Date End Date Status Multi-Day Vitamins Oral Tablet Take by mouth 1 Tablet in the morning. Active Vitron-C 65-125 MG Oral Tablet (Iron-Vitamin C 65-125 mg per tab) Take 1 Tablet by mouth in the morning. Active documented as of this encounter (statuses as of 04/13/2024) Active Problems Problem Noted Date Diagnosed Date Encounter for supervision of other normal , unspecified trimester 12/18/2023 Normal intrauterine , antepartum 2023 Obesity in , antepartum 11/16/2023 Last Assessment & Plan: BMI 30.42 at [facility] Class 1 Rh negative, antepartum 07/01/2021 Overview: Rhogam shot 10/08/23 for 1st tri bleeding Antepartum anemia complicating 021 Overview: HGB 11.2 at [facility], rx iron Acne 10/06/2012 Other allergic rhinitis Overview: ICD-10 update of inactive term Estimated Date of Delivery Comme nts Yes 06/09/2024 Based on last me nstrual period of 09/03/2023 (Exact Date) documented as of this encounter (statuses as of 04/13/2024) Resolved Problems Problem Noted Date Diagnosed Date [...] as of this encounter (statuses as of 04/13/2024) Immunizations Name Administration Dates Next Due Covid-19 Ad26, Single Dose (Rocio/J&J) 03/01/2021 Hepatitis B, 20+ yrs 1994,1994,01/30 Meningococcal Conjugate Vacc ine (Menactra/Menveo) 01/23/2010 Meningococcal MCV4P Conjugat e Vaccine (Menactra) 01/23/2010 PPD 02/21/2002 TDAP (age 10 and older)(Boostrix) 2023,11/25/2021,11/13/2021,11/07 Varicella [...] money to get more. Never true 01/07/2024 [place] Depression Scale Answer Date Recorded [place] Depression Scale Total 6 11/16/2023 The thought [...] on file documented as of this encounter Miscellaneous Notes * Telephone Encounter - Tabitha Guillaume LPN - 04/13/2024 8:17 AM EDT ----- Message from Trudy Manuel sent at 04/13/2024 8:01 AM EDT ----- Please inform patient her recent CBC shows her anemia has improved. Please have her continue takingher PO iron as she has been. Thanks! Trudy Manuel PA-C documented in this encounter Plan of Treatment Upcoming Encounters Date Type Department Care Team (Late st Contact Info) Description 04/20/2024 4:30 PM EDT Office Visit Gynecology/Obstetrics Kristina Childress [address] [place] [address] Marielena Ramirez PA-C [address] [place] [address] Health Maintenance Due Date Last Done Comments [...]
--- OUTSIDE RECORDS SUMMARY | 2024-06-16 15:00 | External Medical Summary | Summary of Care ---
Author Name Unknown Organization [facility] Address [address] [place] [address] Phone [phone] Care Team Providers Care Ammonia Technician Name Role Phone Unavailable Primary Care Provider Unavailabl e Reason for Visit * Reason Comments Return Visit Encounter Details Date Type Department Care Team (Late st Contact Info) Description 05/27/2024 4:30 PM EDT Office Visit Gynecology/Obstetric s Kristina Childress [address] [place] [address] Marielena Ramirez PA-C [address] [place] [address] Rh negative, antepartum*; Obesity in , antepartum; Encounter for supervision of other normal , unspecified trimester; Positive GBS test Allergies Active Allergy Reactions Criticality Noted Date Comments No Known Drug Allergy 08/12/2004 documented as of this encounter (statuses as of 05/27/2024) Medications Medication Sig Dispensed Refills Start Date End Date Status Multi-Day Vitamins Oral Tablet Take by mouth 1 Tablet in the morning. Active Vitron-C 65-125 MG Oral Tablet (Iron-Vitamin C 65-125 mg per tab) Take 1 Tablet by mouth in the morning. Active documented as of this encounter (statuses as of 05/27/2024) Active Problems Problem Noted Date Diagnosed Date [...] Last Assessment & Plan: BMI 30.42 at [facility] Class 1 Rh negative, antepartum 07/01/2021 Overview: Rhogam shot 10/08/23 for 1st tri bleeding Antepartum anemia complicating 021 Overview: HGB 11.2 at [facility], rx iron Acne 10/06/2012 Other allergic rhinitis Overview: ICD-10 update of inactive term Estimated Date of Delivery Comme nts Yes 06/09/2024 Based on last me nstrual period of 09/03/2023 (Exact Date) documented as of this encounter (statuses as of 05/27/2024) Resolved Problems Problem Noted Date Diagnosed Date [...] as of this encounter (statuses as of 05/27/2024) Immunizations Name Administration Dates Next Due Covid-19 [...] money to get more. Never true 01/07/2024 [place] Depression Scale Answer Date Recorded [place] Depression Scale Total 7 04/20/2024 The thought [...] Sign Reading Time Taken Comments Blood Pressure 134/74 05/27/2024 4:07 PM EDT Pulse - - Temperature - - Respiratory Rate - - Oxygen Saturation - - Inhaled Oxygen Concentration - - Weight 92.5 kg (204 lb) 05/27/2024 4:07 PM EDT Height 165.1 cm (5' 5") 05/27/2024 4:07 PM EDT Body Mass Index 33.95 05/27/2024 4:07 PM EDT documented in this encounter Progress Notes * Marielena Ramirez PA-C - 05/27/2024 4:18 PM EDT 38w1d Denies VB, LOF, contractions. Baby is active. Politely declines cervical check. Reviewed IOL, would like to schedule for postdates 41wks. Schedule at [facility] today, given instructions. Date 06/15/2024. Labor precautions and FKC reviewed. Call if <10 movements in 2 hours RTC in 1 week Marielena Ramirez PA-C documented in this encounter Nursing Notes * Tabitha Guillaume LPN - 05/27/2024 4:07 PM EDT 38w1d documented in this encounter Plan of Treatment Upcoming Encounters Date Type Department Care Team (Late st Contact Info) Description 05/31/2024 2:15 PM EST Office Visit [facility]necology[facility]Obst[facility] [address] [place] [address] lEif Causey CRNP [address] [place] [address] Health Maintenance Due Date Last Done Comments [...] as of this encounter Visit Diagnoses Diagnosis Rh negative, antepartum- Primary Rhesus isoimmunization affecting management of mother, antepartum condition Obesity in , antepartum Obesity complicating , childbirth, or the puerperium, antepartum condition or complication Encounter for supervision of other normal , unspecified trimester Positive GBS test documented in this encounter
--- OUTSIDE RECORDS SUMMARY | 2024-06-16 15:00 | External Medical Summary | Summary of Care ---
Author Name Unknown Organization [facility] Address [address] [place] [address] Phone [phone] Care Team Providers Care Feather Trimmer Name Role Phone Unavailable Primary Care Provider Unavailabl e Reason for Visit * Reason Comments Return Visit Encounter Details Date Type Department Care Team (Late st Contact Info) Description 05/06/2024 1:30 PM EDT Office Visit Gynecology/Obstetric s Kristina Childress [address] [place] [address] Elif Causey CRNP [address] [place] [address] Encounter for supervision of other normal in third trimester*; Rh negative, antepartum; Obesity in , antepartum Allergies Active Allergy Reactions Criticality Noted Date Comments No Known Drug Allergy 08/12/2004 documented as of this encounter (statuses as of 05/06/2024) Medications Medication Sig Dispensed Refills Start Date End Date Status Multi-Day Vitamins Oral Tablet Take by mouth 1 Tablet in the morning. Active Vitron-C 65-125 MG Oral Tablet (Iron-Vitamin C 65-125 mg per tab) Take 1 Tablet by mouth in the morning. Active documented as of this encounter (statuses as of 05/06/2024) Active Problems Problem Noted Date Diagnosed Date Encounter for supervision of other normal , unspecified trimester 12/18/2023 Normal intrauterine , antepartum 2023 Obesity in , antepartum 11/16/2023 Last Assessment & Plan: BMI 30.42 at [facility] Class 1 Rh negative, antepartum 07/01/2021 Overview: Rhogam shot 10/08/23 for 1st tri bleeding Antepartum anemia complicating 021 Overview: HGB 11.2 at [facility], rx iron Acne 10/06/2012 Other allergic rhinitis Overview: ICD-10 update of inactive term Estimated Date of Delivery Comme nts Yes 06/09/2024 Based on last me nstrual period of 09/03/2023 (Exact Date) documented as of this encounter (statuses as of 05/06/2024) Resolved Problems Problem Noted Date Diagnosed Date [...] as of this encounter (statuses as of 05/06/2024) Immunizations Name Administration Dates Next Due Covid-19 [...] money to get more. Never true 01/07/2024 [place] Depression Scale Answer Date Recorded [place] Depression Scale Total 7 04/20/2024 The thought [...] Sign Reading Time Taken Comments Blood Pressure 128/66 05/06/2024 1:24 PM EDT Pulse - - Temperature - - Respiratory Rate - - Oxygen Saturation - - Inhaled Oxygen Concentration - - Weight 91.2 kg (201 lb) 05/06/2024 1:24 PM EDT Height 165.1 cm (5' 5") 05/06/2024 1:24 PM EDT Body Mass Index 33.45 05/06/2024 1:24 PM EDT documented in this encounter Progress Notes * Elif Causey CRNP - 05/06/2024 1:34 PM EDT 35w1d Complaints: none Feeling well overall. Good FM. No contractions, bleeding, or LOF. Planning condoms for contraception. CIRO Lares documented in this encounter Nursing Notes * Tabitha Guillaume LPN - 05/06/2024 1:27 PM EDT 35w1d Denies concerns documented in this encounter Plan of Treatment Upcoming Encounters Date Type Department Care Team (Late st Contact Info) Description 05/13/2024 2:45 PM EDT Office Visit Gynecology/Obstetrics [facility] [address] [place] [address] Gina Santiago CRNP [address] [place] [address] 05/20/2024 4:30 PM EDT Office Visit Gynecology/Obstetrics [facility] [address] [place] [address] Marielena Ramirez PA-C [address] [place] [address] 05/27/2024 4:30 PM EDT Office Visit Gynecology/Obstetrics [facility] [address] [place] [address] Marielena Ramirez PA-C [address] [place] [address] 05/31/2024 2:15 PM EST Office Visit Gynecology/Obstetrics [facility] [address] [place] [address] Elif Causey CRNP [address] [place] [address] Health Maintenance Due Date Last Done Comments [...] Diagnosis Encounter for supervision of other normal in third trimester- Primary Rh negative, antepartum Rhesus isoimmunization affecting management of mother, antepartum condition Obesity in , antepartum Obesity complicating , childbirth, or the puerperium, antepartum condition or complication documented in this encounter
--- OUTSIDE RECORDS SUMMARY | 2024-06-16 15:00 | External Medical Summary ---
Author Name Unknown Address Unknown Organization K01:LABORATORY [facility] - [address] [place] [address] Laboratory Report Ordering Provider Test Date Status ELEAZAR GROVE 04/07/2024 13:49:40 Final Observation Date Value Abnormality Reference (Units ) Status SYNC LEUKOCYTES IN BLOOD BY AUTOMATED COUNT 04/07/2024 13:49:40 8.74 4.00-10.80 (K/uL) Final Segs 04/07/2024 13:49:40 70.3 40.0-75.0 (%) Final Lymphs % 04/07/2024 13:49:40 21.9 18.0-42.0 (%) Final Monos 04/07/2024 13:49:40 5.9 1.0-11.0 (%) Final Eosinophils 04/07/2024 13:49:40 0.9 0.0-6.0 (%) Final Basos 04/07/2024 13:49:40 0.5 0.0-2.0 (%) Final Immature Granulocyte, Percent 04/07/2024 13:49:40 0.5 0.0-2.0 (%) Final Absolute Segs 04/07/2024 13:49:40 6.15 1.80-7.70 (K/uL) Final Lymphs, absolute 04/07/2024 13:49:40 1.91 1.00-4.80 (K/ul) Final Monos, Abs 04/07/2024 13:49:40 0.52 0.00-1.10 (K/uL) Final Eos, Abs 04/07/2024 13:49:40 0.08 0.00-0.70 (K/uL) Final Basos, Abs 04/07/2024 13:49:40 0.04 0.00-0.20 (K/uL) Final Immature Granulocytes, Number 04/07/2024 13:49:40 0.04 0.00-0.20 (K/uL) Final Performing Location LABORATORY [facility] - [address] [facility] [address]
--- OUTSIDE RECORDS SUMMARY | 2024-06-16 15:00 | External Medical Summary | Summary of Care ---
Author Name Unknown Organization [facility] Address [address] [place] [address] Phone [phone] Care Team Providers Care Dynamite Shooter Name Role Phone Unavailable Primary Care Provider Unavailabl e Reason for Visit * Reason Comments Return Visit Encounter Details Date Type Department Care Team (Late st Contact Info) Description 05/20/2024 4:30 PM EDT Office Visit Gynecology/Obstetric s Kristina Childress [address] [place] [address] Marielena Ramirez PA-C [address] [place] [address] Encounter for supervision of other normal , unspecified trimester*; Rh negative, antepartum; Obesity in , antepartum; Positive GBS test Allergies Active Allergy Reactions Criticality Noted Date Comments No Known Drug Allergy 08/12/2004 documented as of this encounter (statuses as of 05/20/2024) Medications Medication Sig Dispensed Refills Start Date End Date Status Multi-Day Vitamins Oral Tablet Take by mouth 1 Tablet in the morning. Active Vitron-C 65-125 MG Oral Tablet (Iron-Vitamin C 65-125 mg per tab) Take 1 Tablet by mouth in the morning. Active documented as of this encounter (statuses as of 05/20/2024) Active Problems Problem Noted Date Diagnosed Date [...] Last Assessment & Plan: BMI 30.42 at [facility] Class 1 Rh negative, antepartum 07/01/2021 Overview: Rhogam shot 10/08/23 for 1st tri bleeding Antepartum anemia complicating 021 Overview: HGB 11.2 at [facility], rx iron Acne 10/06/2012 Other allergic rhinitis Overview: ICD-10 update of inactive term Estimated Date of Delivery Comme nts Yes 06/09/2024 Based on last me nstrual period of 09/03/2023 (Exact Date) documented as of this encounter (statuses as of 05/20/2024) Resolved Problems Problem Noted Date Diagnosed Date [...] as of this encounter (statuses as of 05/20/2024) Immunizations Name Administration Dates Next Due Covid-19 [...] money to get more. Never true 01/07/2024 [place] Depression Scale Answer Date Recorded [place] Depression Scale Total 7 04/20/2024 The thought [...] Sign Reading Time Taken Comments Blood Pressure 124/72 05/20/2024 4:16 PM EDT Pulse - - Temperature - - Respiratory Rate - - Oxygen Saturation - - Inhaled Oxygen Concentration - - Weight 91.2 kg (201 lb) 05/20/2024 4:16 PM EDT Height 165.1 cm (5' 5") 05/20/2024 4:16 PM EDT Body Mass Index 33.45 05/20/2024 4:16 PM EDT documented in this encounter Progress Notes * Marielena Ramirez PA-C - 05/20/2024 4:29 PM EDT 37w1d No concerns. Intermittent cramping worse in PM, improved in AM. Denies VB, LOF. Baby is active. Cephalic by bedside sono last visit. GBS positive, pt aware of need for ABX with labor. She was also positive with first . RTC in 1 week Marielena A James, PA-C documented in this encounter Nursing Notes * Tabitha Guillaume LPN - 05/20/2024 4:19 PM EDT 37w1d Denies concerns documented in this encounter Plan of Treatment Upcoming Encounters Date Type Department Care Team (Late st Contact Info) Description 05/27/2024 4:30 PM EDT Office Visit Gynecology/Obstetrics [facility] [address] [place] [address] Marielena Ramirez PA-C [address] [place] [address] 05/31/2024 2:15 PM EST Office Visit Gynecology/Obstetrics [facility] [address] [place] [address] Elif Causey CRNP [address] [place] [address] Health Maintenance Due Date Last Done Comments [...]
--- OUTSIDE RECORDS SUMMARY | 2024-06-16 15:00 | External Medical Summary ---
Author Name Unknown Address Unknown Organization K01:LABORATORY [place] [address] [place] [address] Laboratory Report Ordering Provider Test Date Status WILBUR JULIEN 05/13/2024 10:19:13 Final Observation Date Value Abnormality Reference (Units ) Status Streptococcus agalactiae DNA [Presence] in Specimen by LUCÍA with probe detection 05/13/2024 10:19:13 Positive Abnormal Negative Final Group B Streptococcus detect ed by culture-enhanced PCR (amplified probe). GBS GBSCT - [facility] 05/13/2024 10:19:13 15.6 Final GBS SPCCT - [facility] 05/13/2024 10:19:13 0.0 Final Performing Location LABORATORY [facility] - [facility] [address] [place] [address]
--- OUTSIDE RECORDS SUMMARY | 2024-06-16 15:00 | External Medical Summary | Summary of Care ---
Author Name Unknown Organization [facility] Address [address] [place] [address] Phone [phone] Care Team Providers Care Vehicle Dismantler Name Role Phone Unavailable Primary Care Provider Unavailabl e Reason for Visit * Reason Comments Return Visit Encounter Details Date Type Department Care Team (Late st Contact Info) Description 05/27/2024 4:30 PM EDT Office Visit Gynecology/Obstetric s Kristina Childress [address] [place] [address] Marielena Ramirez PA-C [address] [place] [address] Rh negative, antepartum*; Obesity in , antepartum; [...] Last Assessment & Plan: BMI 30.42 at [facility] Class 1 Rh negative, antepartum 07/01/2021 Overview: Rhogam shot 10/08/23 for 1st tri bleeding Antepartum anemia complicating 021 Overview: HGB 11.2 at [facility], rx iron Acne 10/06/2012 Other allergic rhinitis [...] money to get more. Never true 01/07/2024 [place] Depression Scale Answer Date Recorded [place] Depression Scale Total 7 04/20/2024 The thought [...] to schedule for postdates 41wks. Schedule at [facility] today, given instructions. Date 06/15/2024. Labor precautions [...] 05/31/2024 2:15 PM EST [facility] [address] [place] [address] Elfi Causey CRNP [address] [place] [address] Health Maintenance Due Date Last Done Comments [...]
--- OUTSIDE RECORDS SUMMARY | 2024-06-16 15:00 | External Medical Summary | Summary of Care ---
Author Name Unknown Organization [facility] Address [address] [place] [address] Phone [phone] Care Team Providers Care Marquetry Worker Name Role Phone Unavailable Primary Care Provider Unavailabl e Reason for Visit * Reason Comments Return Visit Encounter Details Date Type Department Care Team (Late st Contact Info) Description 04/07/2024 1:45 PM EDT Office Visit Gynecology/Obstetric s Kristina Childress [address] [place] [address] Elif Causey CRNP [address] [place] [address] Encounter for supervision of other normal , unspecified trimester*; Rh negative, antepartum; Obesity in , antepartum Allergies Active Allergy Reactions Criticality Noted Date Comments No Known Drug Allergy 08/12/2004 documented as of this encounter (statuses as of 04/07/2024) Medications Medication Sig Dispensed Refills Start Date End Date Status Multi-Day Vitamins Oral Tablet Take by mouth 1 Tablet in the morning. Active Vitron-C 65-125 MG Oral Tablet (Iron-Vitamin C 65-125 mg per tab) Take 1 Tablet by mouth in the morning. Active documented as of this encounter (statuses as of 04/07/2024) Active Problems Problem Noted Date Diagnosed Date Encounter for supervision of other normal , unspecified trimester 12/18/2023 Normal intrauterine , antepartum 2023 Obesity in , antepartum 11/16/2023 Last Assessment & Plan: BMI 30.42 at [facility] Class 1 Rh negative, antepartum 07/01/2021 Overview: Rhogam shot 10/08/23 for 1st tri bleeding Antepartum anemia complicating 021 Overview: HGB 11.2 at [facility], rx iron Acne 10/06/2012 Other allergic rhinitis Overview: ICD-10 update of inactive term Estimated Date of Delivery Comme nts Yes 06/09/2024 Based on last me nstrual period of 09/03/2023 (Exact Date) documented as of this encounter (statuses as of 04/07/2024) Resolved Problems Problem Noted Date Diagnosed Date [...] as of this encounter (statuses as of 04/07/2024) Immunizations Name Administration Dates Next Due Covid-19 [...] money to get more. Never true 01/07/2024 [place] Depression Scale Answer Date Recorded [place] Depression Scale Total 6 11/16/2023 The thought [...] Sign Reading Time Taken Comments Blood Pressure 128/74 04/07/2024 1:27 PM EDT Pulse - - Temperature - - Respiratory Rate - - Oxygen Saturation - - Inhaled Oxygen Concentration - - Weight 89.4 kg (197 lb) 04/07/2024 1:27 PM EDT Height - - Body Mass Index 32.78 02/18/2024 3:54 PM EDT documented in this encounter Progress Notes * Elif Causey CRNP - 04/07/2024 1:38 PM EDT 31w No concerns. Baby is active. No contractions, bleeding, LOF. Discussed RSV vaccine with next visit. CIRO Lares * Jenny Coronado CMA - 04/07/2024 1:27 PM EDT 31w0d Denies any concerns documented in this encounter Plan of Treatment Upcoming Encounters Date Type Department Care Team (Late st Contact Info) Description 04/07/2024 2:20 PM EDT Laboratory Laboratory, [address] [place] [phone] Ava Childress Ani [address] [place] [address] Antepartum anemia complicating 04/20/2024 4:30 PM EDT Office Visit Gynecology/Obstetric s Kristina Childress [address] [place] [address] Marielena Ramirez PA-C [address] [place] [address] Health Maintenance Due Date Last Done Comments [...] or the puerperium, antepartum condition or complication Antepartum anemia complicating Anemia, antepartum documented in this encounter
--- OUTSIDE RECORDS SUMMARY | 2024-06-16 15:00 | External Medical Summary | Summary of Care ---
Author Name Unknown Organization [facility] Address [address] [place] [address] Phone [phone] Care Team Providers Care Storage Center Manager Name Role Phone Unavailable Primary Care Provider Unavailabl e Reason for Visit * Reason Comments Outpatient Testing Encounter Details Date Type Department Care Team (Late st Contact Info) Description 04/07/2024 2:20 PM EDT Laboratory Laboratory, [facility] [address] [facility] [place] [phone] [facility] [address] [facility] [place] [address] Antepartum anemia complicating Allergies Active Allergy Reactions Criticality Noted Date [...] & Plan: BMI 30.42 at [facility] Class 1 Rh negative, antepartum 07/01/2021 Overview: Rhogam shot 10/08/23 for 1st tri bleeding Antepartum anemia complicating 021 Overview: HGB 11.2 at [facility], rx iron Acne 10/06/2012 Other allergic [...] money to get more. Never true 01/07/2024 [place] Depression Scale Answer Date Recorded [place] Depression Scale Total 6 11/16/2023 The thought [...] on file documented as of this encounter Plan of Treatment Upcoming Encounters Date Type Department Care Team (Late st Contact Info) Description 04/20/2024 4:30 PM EDT Office Visit Gynecology/Obstetrics Kristina Childress [address] [place] [phone] Marielena Ramirez PA-C [address] [place] [phone] Pending Results Name Type Priority Associated Diagnoses Date /Time CBC WITH WBC DIFFERENTIAL AND ANEMIA REFLEX WORKUP Lab Routine Antepartum anemia complicating 04/07/2024 1:49 PM EDT ANEMIA CBC Lab Routine Antepartum anemia complicating 04/07/2024 1:49 PM EDT DIFFERENTIAL, AUTOMATED Lab Routine Antepartum anemia complicating 04/07/2024 1:49 PM EDT ANEMIA REFLEX CHEMISTRY HOLD Lab Routine Antepartum anemia complicating 04/07/2024 1:49 PM EDT Health Maintenance Due Date Last Done Comments [...] as of this encounter Visit Diagnoses Diagnosis Antepartum anemia complicating Anemia, antepartum documented in this encounter
--- OUTSIDE RECORDS SUMMARY | 2024-06-16 15:00 | External Medical Summary | Summary of Care ---
Author Name Unknown Organization [facility] Address [address] [place] [address] Phone [phone] Care Team Providers Care Outpatient Scheduler Name Role Phone Unavailable Primary Care Provider Unavailabl e Reason for Visit * Reason Comments Return Visit Encounter Details Date Type Department Care Team (Late st Contact Info) Description 05/13/2024 10:00 AM EDT Office Visit Gynecology/Obstetric s Jhaveriemerson Childress [address] [place] [address] Stevan Turner MD [address] [place] [phone] Rh negative, antepartum*; Obesity in , antepartum; Encounter for supervision of other normal , unspecified trimester Allergies Active Allergy Reactions Criticality Noted Date Comments No Known Drug Allergy 08/12/2004 documented as of this encounter (statuses as of 05/13/2024) Medications Medication Sig Dispensed Refills Start Date End Date Status Multi-Day Vitamins Oral Tablet Take by mouth 1 Tablet in the morning. Active Vitron-C 65-125 MG Oral Tablet (Iron-Vitamin C 65-125 mg per tab) Take 1 Tablet by mouth in the morning. Active documented as of this encounter (statuses as of 05/13/2024) Active Problems Problem Noted Date Diagnosed Date Encounter for supervision of other normal , unspecified trimester 12/18/2023 Normal intrauterine , antepartum 2023 Obesity in , antepartum 11/16/2023 Last Assessment & Plan: BMI 30.42 at [facility] Class 1 Rh negative, antepartum 07/01/2021 Overview: Rhogam shot 10/08/23 for 1st tri bleeding Antepartum anemia complicating 021 Overview: HGB 11.2 at [facility], rx iron Acne 10/06/2012 Other allergic rhinitis Overview: ICD-10 update of inactive term Estimated Date of Delivery Comme nts Yes 06/09/2024 Based on last me nstrual period of 09/03/2023 (Exact Date) documented as of this encounter (statuses as of 05/13/2024) Resolved Problems Problem Noted Date Diagnosed Date [...] as of this encounter (statuses as of 05/13/2024) Immunizations Name Administration Dates Next Due Covid-19 [...] money to get more. Never true 01/07/2024 [place] Depression Scale Answer Date Recorded [place] Depression Scale Total 7 04/20/2024 The thought [...] Sign Reading Time Taken Comments Blood Pressure 124/64 05/13/2024 9:59 AM EDT Pulse - - Temperature - - Respiratory Rate - - Oxygen Saturation - - Inhaled Oxygen Concentration - - Weight 91.2 kg (201 lb) 05/13/2024 9:59 AM EDT Height 165.1 cm (5' 5") 05/13/2024 9:59 AM EDT Body Mass Index 33.45 05/13/2024 9:59 AM EDT documented in this encounter Progress Notes * Stevan Turner MD - 05/13/2024 10:25 AM EDT Pt doing well No complaints GBS done Sono done via Exo; cephalic presentation. Post placenta RTC 1 week documented in this encounter Nursing Notes * Jasmina Valdez LPN - 05/13/2024 9:59 AM EDT 36w1d Needs gbs documented in this encounter Plan of Treatment Upcoming Encounters Date Type Department Care Team (Late st Contact Info) Description 05/20/2024 4:30 PM EDT Office Visit Gynecology/Obstetrics [facility] [address] [place] [address] Marielena Ramirez PA-C [address] [place] [address] 05/27/2024 4:30 PM EDT Office Visit Gynecology/Obstetrics [facility] [address] [place] [address] Marielena Ramirez PA-C [address] [place] [address] 05/31/2024 2:15 PM EST Office Visit Gynecology/Obstetrics [facility] [address] [place] [address] Elif Causey CRNP [address] [place] [address] Pending Results Name Type Priority Associated Diagnoses Date /Time GROUP B STREP CULTURE/PCR Lab Routine Rh negative, antepartum 05/13/2024 10:19 AM EDT Scheduled Orders Name Type Priority Associated Diagnoses Orde r Schedule GROUP B STREP CULTURE/PCR Lab Routine Rh negative, antepartum Expected: 05/13/2024, Expires: 05/13/2025 Health Maintenance Due Date Last Done Comments [...] Not on filedocumented as of this encounter Procedures Procedure Name Priority Date/Time Associated Diagnosis Comments POINT OF CARE US - TRANSABDOMINAL Routine 05/13/2024 10:05 AM EDT documented in this encounter Results * POINT OF CARE US - TRANSABDOMINAL (05/13/2024 10:05 AM EDT) Anatomical Region Laterality Modality Abdomen, Body Radiographic Noemi ging 05/13/2024 10:0 5 AM EDT Narrative 05/13/2024 10:22 AM EDT Patient Name: KEV MARI : 1995 (29y) Female Performing Provider: Stevan Turner (digitally signed May 13, 2024 10:22 EDT) Attending: Stevan Turner (digitally signed May 13, 2024 10:22 EDT) [Indications] : position, FHT's [Indications] : [ Assessment] LMP: [ Assessment] ELDA: [ Assessment] Gestation: Single [ Assessment] Fetus Position: Cephalic [ Assessment] Placenta Location: Posterior [ Assessment] Placenta Previa: None [Findings] CONRAD: [Findings] FHT's: 150 [Findings] Other: [Interpretation] : Normal intrauterine Procedure Note Stevna Turner MD - 05/13/2024 Patient Name: KEV MARI : 1995 (29y) Female Performing Provider: Stevan Turner (digitally signed May 13, 2024 10:22EDT) Attending: Stevan Turner (digitally signed May 13, 2024 10:22 EDT) [Indications] : position, FHT's [Indications] : [ Assessment] LMP: [ Assessment] ELDA: [ Assessment] Gestation: Single [ Assessment] Fetus Position: Cephalic [ Assessment] Placenta Location: Posterior [ Assessment] Placenta Previa: None [Findings] CONRAD: [Findings] FHT's: 150 [Findings] Other: [Interpretation] : Normal intrauterine Stevan Turner MD RAD ULTRASOUND documented in this encounter Visit Diagnoses Diagnosis Rh negative, antepartum- Primary Rhesus isoimmunization affecting management of mother, antepartum condition Obesity in , antepartum Obesity complicating , childbirth, or the puerperium, antepartum condition or complication Encounter for supervision of other normal , unspecified trimester documented in this encounter
--- OUTSIDE RECORDS SUMMARY | 2024-06-16 15:00 | External Medical Summary | Summary of Care ---
Author Name Unknown Organization [facility] Address [address] [place] [address] Phone [phone] Care Team Providers Care Diamond Expert Name Role Phone Unavailable Primary Care Provider Unavailabl e Reason for Visit * Reason Onset Date Comments Forms Request 04/25/2024 Encounter Details Date Type Department Care Team (Late st Contact Info) Description 04/25/2024 Telephone Gynecology/Obstetrics [facility] [address] [place] [address] Marielena Ramirez PA-C [address] [place] [address] Forms Request Allergies Active Allergy Reactions Criticality Noted Date Comments No Known Drug Allergy 08/12/2004 documented as of this encounter (statuses as of 04/25/2024) Medications Medication Sig Dispensed Refills Start Date End Date Status Multi-Day Vitamins Oral Tablet Take by mouth 1 Tablet in the morning. Active Vitron-C 65-125 MG Oral Tablet (Iron-Vitamin C 65-125 mg per tab) Take 1 Tablet by mouth in the morning. Active documented as of this encounter (statuses as of 04/25/2024) Active Problems Problem Noted Date Diagnosed Date Encounter for supervision of other normal , unspecified trimester 12/18/2023 Normal intrauterine , antepartum 2023 Obesity in , antepartum 11/16/2023 Last Assessment & Plan: BMI 30.42 at [facility] Class 1 Rh negative, antepartum 07/01/2021 Overview: Rhogam shot 10/08/23 for 1st tri bleeding Antepartum anemia complicating 021 Overview: HGB 11.2 at [facility], rx iron Acne 10/06/2012 Other allergic rhinitis Overview: ICD-10 update of inactive term Estimated Date of Delivery Comme nts Yes 06/09/2024 Based on last me nstrual period of 09/03/2023 (Exact Date) documented as of this encounter (statuses as of 04/25/2024) Resolved Problems Problem Noted Date Diagnosed Date [...] as of this encounter (statuses as of 04/25/2024) Immunizations Name Administration Dates Next Due Covid-19 [...] money to get more. Never true 01/07/2024 [place] Depression Scale Answer Date Recorded [place] Depression Scale Total 6 11/16/2023 The thought [...] encounter Miscellaneous Notes * Telephone Encounter - Marielena Ramirez PA-C - 04/25/2024 3:53 PM EDT Forms signed. Given back to Alisha for faxing. * Telephone Encounter - Alisha Espinoza OSA - 04/25/2024 9:00 AM EDT Forms completed and placed on [employer] desk for signature. documented in this encounter Plan of Treatment Upcoming Encounters Date Type Department Care Team (Late st Contact Info) Description 05/06/2024 1:30 PM EDT [facility] [address] [place] [address] Elif Causey CRNP [address] [place] [address] 05/20/2024 4:30 PM EDT [facility] [address] [place] [address] Marielena Ramirez PA-C [address] [place] [address] Health Maintenance Due Date Last Done Comments [...]
--- OUTSIDE RECORDS SUMMARY | 2024-06-16 15:00 | External Medical Summary ---
Author Name Unknown Address Unknown Organization [id number]:LAB[place] [facility] [place] [facility] [address] [place] [id number] Laboratory Report Ordering Provider Test Date Status ELEAZAR GROVE 04/07/2024 13:49:40 Final Observation Date Value Abnormality Reference (Units ) Status WBC, Total 04/07/2024 13:49:40 8.74 4.00-10.8 0 (K/uL) Final RBC 04/07/2024 13:49:40 4.08 3.85-5.15 (M/uL) Final Hemoglobin 04/07/2024 13:49:40 11.2 Below low normal 12 .0-15.3 (g/dL) Final Anemia reflex testing trigge rs on a HGB < 12.0 for Females and HGB < 13.0 for Males in accordance with the WHO Anemia Guidelines
Anemia reflex testing triggers on a HGB < 12.0 for Females and HGB < 13.0 for Males in accordance with the WHO Anemia Guidelines HCT 04/07/2024 13:49:40 35.2 Below low normal 36. 0-45.2 (%) Final MCV 04/07/2024 13:49:40 86.3 81.5-97.5 (fL) Final MCH 04/07/2024 13:49:40 27.5 27.0-34.0 (pg) Final MCHC 04/07/2024 13:49:40 31.8 32.0-36.0 (g/dL) Final RDW 04/07/2024 13:49:40 17.2 11.5-15.5 (%) Final Platelets 04/07/2024 13:49:40 226 140-400 (K /uL) Final MPV 04/07/2024 13:49:40 9.9 6.6-11.1 ( fL) Final Nucleated erythrocytes/100 leukocytes [Ratio] in Blood by Automated count 04/07/2024 13:49:40 0 <=0 (/100 WBCs) Final Performing Location LABORATORY [facility] [place] [address] [facility] [address]
--- OUTSIDE RECORDS SUMMARY | 2024-06-16 15:01 | External Medical Summary ---
Author Name Unknown Address Unknown Organization [id number]:LABORATORY [facility] [place] [facility] - [address] [place] [address] Laboratory Report Ordering Provider Test Date Status TACOS GALLEGOS 03/10/2024 15:51:24 Final Observation Date Value Abnormality Reference (Units ) Status ABO 03/10/2024 15:51:24 A Final RH 03/10/2024 15:51:24 Negative Final RED BLOOD CELL ANTIBODY SCREEN 03/10/2024 15:51:24 Positive Final Antibodies may delay blood a vailability
If RBC use is anticipated, place a prepare order SPECIMEN EXPIRATION DATE 03/10/2024 15:51:24 03/13/2024 23:5 9 Final Performing Location LABORATORY [facility] - [address] [place] [address]
--- OUTSIDE RECORDS SUMMARY | 2024-06-16 15:01 | External Medical Summary | Summary of Care ---
Author Name Unknown Organization [facility] Address [address] [place] [address] Phone [phone] Care Team Providers Care Retort Or Condenser Press Operator Name Role Phone Unavailable Primary Care Provider Unavailabl e Reason for Visit * Reason Comments Outpatient Testing Encounter Details Date Type Department Care Team (Late st Contact Info) Description 03/10/2024 2:40 PM EDT Laboratory Laboratory, [facility] [address] [facility] [place] [phone] [facility] [address] [place] [address] 24 weeks gestation of ; Rh negative, antepartum; Encounter for supervision of other normal in third trimester Allergies Active Allergy Reactions Criticality Noted Date Comments No Known Drug Allergy 08/12/2004 documented as of this encounter (statuses as of 03/10/2024) Medications Medication Sig Dispensed Refills Start Date End Date Status Multi-Day Vitamins Oral Tablet Take by mouth 1 Tablet in the morning. Active Hospital, Clinic, or Other Facility Administered Medication Ordered Dose Route Frequency Start Date End Date Status Rho D Immune Globulin (Rhophylac) inj 300 mcgIndications:Rh negative, antepartum 300 mcg IM ONCE 03/10/2024 03/11/2024 Active documented as of this encounter (statuses as of 03/10/2024) Active Problems Problem Noted Date Diagnosed Date Encounter for supervision of other normal , unspecified trimester 12/18/2023 Normal intrauterine , antepartum 2023 Obesity in , antepartum 11/16/2023 Last Assessment & Plan: BMI 30.42 at [facility] Class 1 Rh negative, antepartum 07/01/2021 Overview: Rhogam shot 10/08/23 for 1st tri bleeding Acne 10/06/2012 Other allergic rhinitis Overview: ICD-10 update of inactive term Estimated Date of Delivery Comme nts Yes 06/09/2024 Based on last me nstrual period of 09/03/2023 (Exact Date) documented as of this encounter (statuses as of 03/10/2024) Resolved Problems Problem Noted Date Diagnosed Date Resolved Date COVID-19 affecting in third trimester 02/10/2022 03/28/2022 GBS (group B Streptococcus c arrier), +RV culture, currently 01/10/2022 03/28/2022 Disorder of placenta in second trimester 10/04/2021 12/05/2021 Antepartum anemia complicating 07/01/2021 03/28/2022 Overview: HGB 11.2 at [facility], rx iron Rubella non-immune status, antepartum 07/01/2021 03/28/2022 Supervision of normal first 06/28/2021 03/28/2022 Last Assessment & Plan: rhogham given at 28wks 11/13/2021 Suri Galvan LPN Vaginal bleeding in 06/16/2021 06/28/2021 documented as of this encounter (statuses as of 03/10/2024) Immunizations Name Administration Dates Next Due Covid-19 Ad26, Single Dose (Rocio/J&J) 03/01/2021 DTWP - Dipth/Tet/Whole Cell Pertussis 1994 ,1994,1994 DTaP Dipth/Tet/Acell Pertussis (Infanrix), Peds 02/13/1999,07/31/1995 Haemophilius B (HIB), unspecified 1994,1994,1994,04/01 Hepatitis B Vaccine 1994,1994,1993 Hepatitis B, 20+ yrs 1994,1994,01/30 IPV - Polio Virus Vaccine (Inact) 03/06/2004 MMR - Measles/Mumps/Rubella Vaccine 02/13/1999 Measles Vaccine 05/01/1995 Meningococcal Conjugate Vacc ine (Menactra/Menveo) 01/23/2010 Meningococcal MCV4P Conjugat e Vaccine (Menactra) 01/23/2010 Mumps Vaccine 11/03/1995 OPV - Polio Virus Vaccine (Oral) 1994,01/1994,1994 PPD 02/21/2002 Rubella Vaccine 07/31/1995 TB Lizbeth Test 02/21/2002 TDAP (age 10 and older)(Boostrix) 11/25/2021,,11/07/2005 Varicella Vaccine (Chicken Pox) 01/23/2010,03/08 documented as of this encounter Social History [...] money to get more. Never true 01/07/2024 [place] Depression Scale Answer Date Recorded [place] Depression Scale Total 6 11/16/2023 The thought [...] Care Team (Late st Contact Info) Description 03/24/2024 2:00 PM EDT Office Visit Gynecology/Obstetrics [facility] [address] [facility] [place] [address] Trudy Manuel PA-C [address] [place] [address] [place] [phone] Pending Results Name Type Priority Associated Diagnoses Date /Time CBC WITH WBC DIFFERENTIAL AND ANEMIA REFLEX WORKUP Lab Routine 24 weeks gestation of 03/10/2024 3:42 PM EDT SYPHILIS ANTIBODY SCREEN WITH REFLEX TO RPR Lab Routine 24 weeks gestation of 03/10/2024 3:42 PM EDT 50-G GESTATIONAL GLUCOSE, 1 HOUR Lab Routine 24 weeks gestation of 03/10/2024 3:42 PM EDT ANEMIA CBC Lab Routine 24 weeks gestation of 03/10/2024 3:42 PM EDT DIFFERENTIAL, AUTOMATED Lab Routine 24 weeks gestation of 03/10/2024 3:42 PM EDT ANEMIA REFLEX CHEMISTRY HOLD Lab Routine 24 weeks gestation of 03/10/2024 3:42 PM EDT SYPHILIS ANTIBODY SCREEN Lab Routine 24 weeks gestation of 03/10/2024 3:42 PM EDT TYPE AND SCREEN Lab Routine Rh negative, antepartum Encounter for supervision of other normal in third trimester 03/10/2024 3:51 PM EDT Health Maintenance Due Date Last Done Comments Depression Screening 05/28/2021 05/28/2020 COVID-19 Vaccine ( season) 2023 03/01/2021 HPV/Co-Test 01/30/2024 Influenza Vaccine (FLU shot) (#1) 2024 Cervical Cancer Screening 04/07/2026 Pap Smear 04/07/2026 04/07/2023, 06/27, 10/21/2017 DTaP,Tdap,and Td Vaccines (9 - Td or Tdap) 11/26/2031 11/25/2021, 11/13/2021, 11/07/2005, Additional history exists Hepatitis B Vaccine Completed [...] as of this encounter Visit Diagnoses Diagnosis 24 weeks gestation of state, incidental Rh negative, antepartum Rhesus isoimmunization affecting management of mother, antepartum condition Encounter for supervision of other normal in third trimester documented in this encounter
--- OUTSIDE RECORDS SUMMARY | 2024-06-16 15:01 | External Medical Summary ---
Author Name Unknown Address Unknown Organization [id number]:[place] [facility] [place] [facility] [address] [place] [address] Laboratory Report Ordering Provider Test Date Status MATT DESAI 03/10/2024 15:42:17 Final Observation Date Value Abnormality Reference (Units ) Status WBC, Total 03/10/2024 15:42:17 8.97 4.00-10.8 0 (K/uL) Final RBC 03/10/2024 15:42:17 4.04 3.85-5.15 (M/uL) Final Hemoglobin 03/10/2024 15:42:17 10.8 Below low normal 12 .0-15.3 (g/dL) Final Anemia reflex testing trigge rs on a HGB < 12.0 for Females and HGB < 13.0 for Males in accordance with the WHO Anemia Guidelines
Anemia reflex testing triggers on a HGB < 12.0 for Females and HGB < 13.0 for Males in accordance with the WHO Anemia Guidelines HCT 03/10/2024 15:42:17 33.8 Below low normal 36. 0-45.2 (%) Final MCV 03/10/2024 15:42:17 83.7 81.5-97.5 (fL) Final MCH 03/10/2024 15:42:17 26.7 27.0-34.0 (pg) Final MCHC 03/10/2024 15:42:17 32.0 32.0-36.0 (g/dL) Final RDW 03/10/2024 15:42:17 14.0 11.5-15.5 (%) Final Platelets 03/10/2024 15:42:17 246 140-400 (K /uL) Final MPV 03/10/2024 15:42:17 10.1 6.6-11.1 ( fL) Final Nucleated erythrocytes/100 leukocytes [Ratio] in Blood by Automated count 03/10/2024 15:42:17 0 <=0 (/100 WBCs) Final Performing Location [facility] [place] [address] [facility] [address]
--- OUTSIDE RECORDS SUMMARY | 2024-06-16 15:01 | External Medical Summary | Summary of Care ---
Author Name Unknown Organization [facility] Address [address] [place] [address] Phone [phone] Care Team Providers Care Sharepoint Admin Name Role Phone Unavailable Primary Care Provider Unavailabl e Reason for Visit * Reason Comments Return Visit Encounter Details Date Type Department Care Team (Late st Contact Info) Description 03/10/2024 2:15 PM EDT Office Visit Gynecology/Obstetric s Kristina Childress [address] [place] [address] Elif Causey CRNP [address] [place] [phone] Encounter for supervision of other normal in third trimester*; Rh negative, antepartum; Obesity in , antepartum; Need for qbdaoitcve-dlyywze-nw rtussis (Tdap) vaccine Allergies Active Allergy Reactions Criticality Noted Date [...] negative, antepartum 300 mcg IM ONCE 03/10/2024 03/10/2024 Ended documented as of this encounter (statuses as of 03/10/2024) Active Problems Problem Noted Date Diagnosed Date Encounter for supervision of other normal , unspecified trimester 12/18/2023 Normal intrauterine , antepartum 2023 Obesity in , antepartum 11/16/2023 Last Assessment & Plan: BMI 30.42 at [facility] Class 1 Rh negative, antepartum 07/01/2021 [...] complicating 07/01/2021 03/28/2022 Overview: HGB 11.2 at [facility], rx iron Rubella non-immune status, antepartum 07/01/2021 [...] money to get more. Never true 01/07/2024 [place] Depression Scale Answer Date Recorded [place] Depression Scale Total 6 11/16/2023 The thought [...] Sign Reading Time Taken Comments Blood Pressure 130/72 03/10/2024 2:13 PM EDT Pulse - - Temperature - - Respiratory Rate - - Oxygen Saturation - - Inhaled Oxygen Concentration - - Weight 86.8 kg (191 lb 6.4 oz) 03/10/2024 2:13 P M EDT Height - - Body Mass Index 31.85 02/18/2024 3:54 PM EDT documented in this encounter Progress Notes * Jenny Coronado MED ASSIST - 03/10/2024 4:03 PM EDT Patient here for TDAP injection. Patient doing well no complaints. Injection given IM as ordered. Patient tolerated well. Patient to follow up as directed. Patient instructed to call if any complications. Patient verbalized understanding of instructions given and her follow up appt for ALYSON Injection site: Left Deltoid Medication Source: Dispensed stock medication Patient here for RHOGAM injection. Patient doing well no complaints. Injection given IM as ordered.Patient tolerated well. Patient to follow up as directed. Patient instructed to call if any complications. Patient verbalized understanding of instructions given and her follow up appt for ALYSON Injection site: Right Deltoid Medication Source: Dispensed stock medication * Elif Causey CRNP - 03/10/2024 2:23 PM EDT 27w No concerns. Baby is very active. Denies contractions, bleeding, LOF. Glucola, Rhogam, TDAP today. CIRO Lares * Jenny Coronado MED ASSIST - 03/10/2024 2:13 PM EDT 27w0d Denies any concerns. Agreeable to TDAP today documented in this encounter Plan of Treatment Upcoming Encounters Date Type Department Care Team (Late st Contact Info) Description 03/24/2024 2:00 PM EDT Office Visit Gynecology/Obstetrics [facility] [address] [facility] [place] [address] Trudy Manuel PA-C [address] [place] [address] Pending Results Name Type Priority Associated Diagnoses Date /Time TYPE AND SCREEN Lab Routine Rh negative, antepartum Encounter for supervision of other normal in third trimester 03/10/2024 3:51 PM EDT Scheduled Orders Name Type Priority Associated Diagnoses Orde r Schedule TYPE AND SCREEN Lab Routine Rh negative, antepartum Encounter for supervision of other normal in third trimester Expected: 03/10/2024, Expires: 04/10/2025 Health Maintenance Due Date Last Done Comments Depression Screening 05/28/2021 05/28/2020 COVID-19 Vaccine ( season) 2023 03/01/2021 HPV/Co-Test 01/30/2024 Influenza Vaccine (FLU shot) (#1) 2024 Cervical Cancer Screening 04/07/2026 Pap Smear 04/07/2026 04/07/2023, 06/27, 10/21/2017 DTaP,Tdap,and Td Vaccines (10 - Td or Tdap) 03/10/2034 [...] or the puerperium, antepartum condition or complication Need for bysjxcsldx-mdsjpco-pncngxlxx (Tdap) vaccine Need for prophylactic vaccination with combined tulwtuptis-qobqrtg-liffdvfkk (DTP) vaccine documented in this encounter Administered Medications Inactive Administered Medications - up to 3 most recent administrations Medication Order MAR Action Action Date Dose Rate Site Rho D Immune Globulin (Rhophylac) inj 300 mcg 300 mcg, Intramuscular, ONCE, On [place] 03/10/24 at 1500, For 1 dose, Do not administer until type and screen has been collected! 1 MCG = 5 INTERNATIONAL UNITS Given 03/10/2024 4:01 PM EDT 300 mcg Deltoid Right Upper documented in this encounter
--- OUTSIDE RECORDS SUMMARY | 2024-06-16 15:01 | External Medical Summary ---
Author Name Unknown Address Unknown Organization [id number]:LABORATORY [facility] - [address] [place] [address] Laboratory Report Ordering Provider Test Date Status TACOS GALLEGOS 03/10/2024 15:51:24 Final Observation Date Value Abnormality Reference (Units) Status RED BLOOD CELL ANTIBODY IDENTIFICATION 03/10/2024 15:51:24 No new alloantibodies identified Final previous passive anti-D from Rh Immune Globulin Performing Location LABORATORY [facility] - [address] [place] [address]
--- OUTSIDE RECORDS SUMMARY | 2024-06-16 15:01 | External Medical Summary | Summary of Care ---
Author Name Unknown Organization [facility] Address [address] [place] [address] Phone [phone] Care Team Providers Care Gut Sorter Name Role Phone Unavailable Primary Care Provider Unavailabl e Reason for Visit * Reason Onset Date Comments Appointment 03/24/2024 Encounter Details Date Type Department Care Team (Late st Contact Info) Description 03/24/2024 Telephone Gynecology/Obstetrics [facility] [address] [place] [address] Trudy Manuel PA-C [address] [place] [address] Appointment Allergies Active Allergy Reactions Criticality Noted Date Comments No Known Drug Allergy 08/12/2004 documented as of this encounter (statuses as of 03/25/2024) Medications Medication Sig Dispensed Refills Start Date End Date Status Multi-Day Vitamins Oral Tablet Take by mouth 1 Tablet in the morning. Active Vitron-C 65-125 MG Oral Tablet (Iron-Vitamin C 65-125 mg per tab) Take 1 Tablet by mouth in the morning. Active documented as of this encounter (statuses as of 03/25/2024) Active Problems Problem Noted Date Diagnosed Date Encounter for supervision of other normal , unspecified trimester 12/18/2023 Normal intrauterine , antepartum 2023 Obesity in , antepartum 11/16/2023 Last Assessment & Plan: BMI 30.42 at [facility] Class 1 Rh negative, antepartum 07/01/2021 Overview: Rhogam shot 10/08/23 for 1st tri bleeding Antepartum anemia complicating 021 Overview: HGB 11.2 at [facility], rx iron Acne 10/06/2012 Other allergic rhinitis Overview: ICD-10 update of inactive term Estimated Date of Delivery Comme nts Yes 06/09/2024 Based on last me nstrual period of 09/03/2023 (Exact Date) documented as of this encounter (statuses as of 03/25/2024) Resolved Problems Problem Noted Date Diagnosed Date [...] as of this encounter (statuses as of 03/25/2024) Immunizations Name Administration Dates Next Due Covid-19 [...] money to get more. Never true 01/07/2024 [place] Depression Scale Answer Date Recorded [place] Depression Scale Total 6 11/16/2023 The thought [...] encounter Miscellaneous Notes * Telephone Encounter - Gail Vaz OSA - 03/25/2024 1:17 PM EDT Handling in another encounter. * Telephone Encounter - Elena Brewster OSA - 03/24/2024 2:22 PM EDT Pt. Need to return in 2 weeks for a ALYSON would like after noon on a or Thursday. You can callher at [phone] or send a message on my chart documented in this encounter Plan of Treatment Upcoming Encounters Date Type Department Care Team (Late st Contact Info) Description 04/12/2024 2:15 PM EDT Office Visit Gynecology/Obstetrics Kristina Staleys [address] [place] [address] Elif Causey CRNP [address] [place] [address] Health Maintenance Due Date Last Done Comments [...]
--- OUTSIDE RECORDS SUMMARY | 2024-06-16 15:01 | External Medical Summary | Summary of Care ---
Author Name Unknown Organization [facility] Address [address] [place] [address] Phone [phone] Care Team Providers Care Research And Development Researcher Name Role Phone Unavailable Primary Care Provider Unavailabl e Encounter Details Date Type Department Care Team (Late st Contact Info) Description 03/14/2024 Telephone Gynecology/Obstetrics [facility] [address] [facility] [place] [address] Lesly Moreland MD [address] [place] [address] Allergies Active Allergy Reactions Criticality Noted Date Comments No Known Drug Allergy 08/12/2004 documented as of this encounter (statuses as of 03/14/2024) Medications Medication Sig Dispensed Refills Start Date End Date Status Multi-Day Vitamins Oral Tablet Take by mouth 1 Tablet in the morning. Active documented as of this encounter (statuses as of 03/14/2024) Active Problems Problem Noted Date Diagnosed Date Encounter for supervision of other normal , unspecified trimester 12/18/2023 Normal intrauterine , antepartum 2023 Obesity in , antepartum 11/16/2023 Last Assessment & Plan: BMI 30.42 at [facility] Class 1 Rh negative, antepartum 07/01/2021 Overview: Rhogam shot 10/08/23 for 1st tri bleeding Antepartum anemia complicating 021 Overview: HGB 11.2 at [facility], rx iron Acne 10/06/2012 Other allergic rhinitis Overview: ICD-10 update of inactive term Estimated Date of Delivery Comme nts Yes 06/09/2024 Based on last me nstrual period of 09/03/2023 (Exact Date) documented as of this encounter (statuses as of 03/14/2024) Resolved Problems Problem Noted Date Diagnosed Date [...] as of this encounter (statuses as of 03/14/2024) Immunizations Name Administration Dates Next Due Covid-19 [...] money to get more. Never true 01/07/2024 [place] Depression Scale Answer Date Recorded [place] Depression Scale Total 6 11/16/2023 The thought [...] encounter Miscellaneous Notes * Telephone Encounter - Heidy Bowling RN - 03/14/2024 9:43 AM EDT Patient called and made aware. Patient verbalized understanding to all. * Telephone Encounter - Suri Galvan LPN - 03/14/2024 8:28 AM EDT ----- Message from Lesly Moreladn MD sent at 03/14/2024 7:00 AM EDT ----- Please let the patient know I reviewed her third-trimester labs, 1 hours normal, syphilis negative CBC indicates she has iron-deficiency anemia. Would recommend she start taking jpcd-ejs-oamlmfd iron, and Colace as needed Thank you ----- Message ----- From: Frank Couch Automated Processing Sent: 03/10/2024 4:16 PM EDT To: Lesly Moreland MD documented in this encounter Plan of Treatment Upcoming Encounters Date Type Department Care Team (Late st Contact Info) Description 03/24/2024 2:00 PM EDT Office Visit Gynecology/Obstetrics [facility] [address] [facility] [place] [address] Trudy Manuel PA-C [address] [place] [phone] Health Maintenance Due Date Last Done Comments Depression Screening 05/28/2021 05/28/2020 COVID-19 Vaccine (2 24 season) 2023 03/01/2021 HPV/Co-Test 01/30/2024 Influenza Vaccine [...]
--- OUTSIDE RECORDS SUMMARY | 2024-06-16 15:01 | External Medical Summary | Summary of Care ---
Author Name Unknown Organization [facility] Address [address] [place] [address] Phone [phone] Care Team Providers Care Laborer Name Role Phone Unavailable Primary Care Provider Unavailabl e Reason for Visit * Reason Comments Return Visit Encounter Details Date Type Department Care Team (Late st Contact Info) Description 03/24/2024 2:00 PM EDT Office Visit Gynecology/Obstetric [facility] [address] [facility] [place] [address] Trudy Manuel PA[facility]C [address] [facility] [phone] Encounter for supervision of other normal in third trimester*; Obesity in , antepartum; Rh negative, antepartum; Antepartum anemia complicating Allergies Active Allergy Reactions Criticality Noted Date Comments No Known Drug Allergy 08/12/2004 documented as of this encounter (statuses as of 03/24/2024) Medications Medication Sig Dispensed Refills Start Date End Date Status Multi-Day Vitamins Oral Tablet Take by mouth 1 Tablet in the morning. Active Vitron-C 65-125 MG Oral Tablet (Iron-Vitamin C 65-125 mg per tab) Take 1 Tablet by mouth in the morning. Active documented as of this encounter (statuses as of 03/24/2024) Active Problems Problem Noted Date Diagnosed Date Encounter for supervision of other normal , unspecified trimester 12/18/2023 Normal intrauterine , antepartum 2023 Obesity in , antepartum 11/16/2023 Last Assessment & Plan: BMI 30.42 at [facility] Class 1 Rh negative, antepartum 07/01/2021 Overview: Rhogam shot 10/08/23 for 1st tri bleeding Antepartum anemia complicating 021 Overview: HGB 11.2 at [facility], rx iron Acne 10/06/2012 Other allergic rhinitis Overview: ICD-10 update of inactive term Estimated Date of Delivery Comme nts Yes 06/09/2024 Based on last me nstrual period of 09/03/2023 (Exact Date) documented as of this encounter (statuses as of 03/24/2024) Resolved Problems Problem Noted Date Diagnosed Date [...] as of this encounter (statuses as of 03/24/2024) Immunizations Name Administration Dates Next Due Covid-19 [...] money to get more. Never true 01/07/2024 [place] Depression Scale Answer Date Recorded [place] Depression Scale Total 6 11/16/2023 The thought [...] Sign Reading Time Taken Comments Blood Pressure 130/74 03/24/2024 1:56 PM EDT Pulse - - Temperature - - Respiratory Rate - - Oxygen Saturation - - Inhaled Oxygen Concentration - - Weight 87.1 kg (192 lb) 03/24/2024 1:56 PM EDT Height - - Body Mass Index 31.95 02/18/2024 3:54 PM EDT documented in this encounter Progress Notes * Trudy Manuel PA-C - 03/24/2024 2:02 PM EDT Gina Mari is a 29 year old female here for her routine OB appointment at 29w0d Her Estimated Date of Delivery: 06/09/24 REVIEW OF SYSTEMS She affirms movement. Denies vaginal bleeding, LOF, contractions, N/V, headaches, vision changes, RUQ pain. PHYSICAL EXAM: Filed Vitals: 03/24/24 1356 BP: 130/74 Weight: 87.1 kg (192 lb) +FHT 140s Fundal height 29 cm ASSESSMENT/PLAN Encounter for supervision of other normal in third trimester (Primary) Obesity in , antepartum Rh negative, antepartum Antepartum anemia complicating - CBC WITH WBC DIFFERENTIAL AND ANEMIA REFLEX WORKUP; Future; Expected date: 04/07/2024 - Recent CBC - Hgb 10.4. Encouraged to take iron BID. She is agreeable. Will re- check levels in 4 weeks. If Hgb persists below 11, will place BM referral. Supervision of - labor precautions and kick counts reviewed RTO in 2 weeks Trudy Manuel PA-C 03/24/2024 * Jenny Coronado CMA - 03/24/2024 1:56 PM EDT 29w0d Denies any concerns today documented in this encounter Plan of Treatment Scheduled Orders Name Type Priority Associated Diagnoses Orde r Schedule CBC WITH WBC DIFFERENTIAL AND ANEMIA REFLEX WORKUP Lab Routine Antepartum anemia complicating Expected: 04/07/2024, Expires: 03/24/2025 Health Maintenance Due Date Last Done Comments Depression Screening 05/28/2021 05/28/2020 COVID-19 Vaccine (2 - 2022-24 season) 2023 03/01/2021 HPV/Co-Test 01/30/2024 Influenza Vaccine [...] of other normal in third trimester- Primary Obesity in , antepartum Obesity complicating , childbirth, or the puerperium, antepartum condition or complication Rh negative, antepartum Rhesus isoimmunization affecting management of mother, antepartum condition Antepartum anemia complicating Anemia, antepartum documented in this encounter
--- OUTSIDE RECORDS SUMMARY | 2024-06-16 15:01 | External Medical Summary ---
Author Name Unknown Address Unknown Organization [id number]:LABORATORY [facility] - [address] [place] [address] Laboratory Report Ordering Provider Test Date Status MATT DESAI 03/10/2024 15:42:17 Final Observation Date Value Abnormality Reference (Units ) Status Iron 03/10/2024 15:42:17 32 Below low normal 33-151 (ug/dL) Final Iron-binding capacity 03/10/2024 15:42:17 433 Above high normal 250-425 (ug/dL) Final Transferrin Sat % 03/10/2024 15:42:17 7 Below low normal 15-55 (%) Final Performing Location LABORATORY [facility] - [address] [place] [address]
--- OUTSIDE RECORDS SUMMARY | 2024-06-16 15:01 | External Medical Summary ---
Author Name Unknown Address Unknown Organization [id number]:LABORATORY [facility] - [address] [facility] [address] [place] [address] Laboratory Report Ordering Provider Test Date Status GISELLEBANDARPRAFUL 03/10/2024 15:42:17 Final Observation Date Value Abnormality Reference (Units ) Status SYNC LEUKOCYTES IN BLOOD BY AUTOMATED COUNT 03/10/2024 15:42:17 8.97 4.00-10.80 (K/uL) Final Segs 03/10/2024 15:42:17 70.6 40.0-75.0 (%) Final Lymphs % 03/10/2024 15:42:17 22.0 18.0-42.0 (%) Final Monos 03/10/2024 15:42:17 5.4 1.0-11.0 (%) Final Eosinophils 03/10/2024 15:42:17 1.3 0.0-6.0 (%) Final Basos 03/10/2024 15:42:17 0.3 0.0-2.0 (%) Final Immature Granulocyte, Percent 03/10/2024 15:42:17 0.4 0.0-2.0 (%) Final Absolute Segs 03/10/2024 15:42:17 6.33 1.80-7.70 (K/uL) Final Lymphs, absolute 03/10/2024 15:42:17 1.97 1.00-4.80 (K/ul) Final Monos, Abs 03/10/2024 15:42:17 0.48 0.00-1.10 (K/uL) Final Eos, Abs 03/10/2024 15:42:17 0.12 0.00-0.70 (K/uL) Final Basos, Abs 03/10/2024 15:42:17 0.03 0.00-0.20 (K/uL) Final Immature Granulocytes, Number 03/10/2024 15:42:17 0.04 0.00-0.20 (K/uL) Final Performing Location LABORATORY [facility] - [address] [facility] [address]
--- OUTSIDE RECORDS SUMMARY | 2024-06-16 15:01 | External Medical Summary ---
Author Name Unknown Address Unknown Organization [id number]:LABORATORY [facility] - [address] [place] [address] Laboratory Report Ordering Provider Test Date Status MATT DESAI 03/10/2024 15:42:17 Final Observation Date Value Abnormality Reference (Units ) Status Ferritin 03/10/2024 15:42:17 6 Below low normal 13- 150 (ng/mL) Final Performing Location LABORATORY [facility] - [address] [place] [address]
--- OUTSIDE RECORDS SUMMARY | 2024-06-16 15:01 | External Medical Summary ---
Author Name Unknown Address Unknown Organization [id number]:[facility] [place] [address] [facility] [place] [address] Laboratory Report Ordering Provider Test Date Status MATT DESAI 03/10/2024 15:42:17 Final Observation Date Value Abnormality Reference (Units ) Status Treponema pallidum Ab [Presence] in Serum by Immunoassay 03/10/2024 15:42:17 Nonreactive Nonreactive Final No serologic evidence of syp hilis. No additional testing clinicially indicated at this time. Consider repeat testing in 2-4 weeks if acute or primary syphilis is suspected. Performing Location [facility] [place] [address] [place] [address]
--- OUTSIDE RECORDS SUMMARY | 2024-06-16 15:01 | External Medical Summary | Summary of Care ---
Author Name Unknown Organization [facility] Address [address] [place] [address] Phone [phone] Care Team Providers Care Tombstone Polisher Name Role Phone Unavailable Primary Care Provider Unavailabl e Reason for Visit * Reason Comments Outpatient Testing Encounter Details Date Type Department Care Team (Late st Contact Info) Description 03/10/2024 2:40 PM EDT Laboratory Laboratory, [facility] [address] [facility] [place] [phone] [facility] [address] [facility] [place] [address] 24 weeks gestation of ; Rh negative, [...] complicating 07/01/2021 03/28/2022 Overview: HGB 11.2 at [facility], rx iron Rubella non-immune status, [...] money to get more. Never true 01/07/2024 [place] Depression Scale Answer Date Recorded [place] Depression Scale Total 6 11/16/2023 The thought [...] 03/24/2024 2:00 PM EDT Office Visit Gynecology/Obstetrics [facility] [address] [facility] [place] [address] Trudy Manuel PA-C [address] [place] [address] [place] [phone] Pending Results Name Type Priority Associated Diagnoses [...]
--- OUTSIDE RECORDS SUMMARY | 2024-06-16 15:01 | External Medical Summary ---
Author Name Unknown Address Unknown Organization [id number]:[facility] [address] [facility] [address] [facility] [address] Laboratory Report Ordering Provider Test Date Status MATT DESAI 03/10/2024 15:42:17 Final Observation Date Value Abnormality Reference (Units ) Status Retic, % (auto) 03/10/2024 15:42:17 2.12 Above high normal 0.80-1.90 (%) Final Reticulocytes, Absolute 03/10/2024 15:42:17 86.1 31.3-100.1 (K/uL) Final Reticulocyte fraction, immature 03/10/2024 15:42:17 18.8 2.5-20.6 (%) Final Reticulocyte HGB 03/10/2024 15:42:17 27.2 Below low normal 29.7-37.4 (pg) Final Performing Location [facility] [place] [place] [address]
--- OUTSIDE RECORDS SUMMARY | 2024-06-16 15:01 | External Medical Summary | Summary of Care ---
Author Name Unknown Organization [facility] Address [address] [facility] [place] [address] Phone [phone] Care Team Providers Care Spark Plug Tester Name Role Phone Unavailable Primary Care Provider Unavailabl e Encounter Details Date Type Department Care Team (Late st Contact Info) Description 02/20/2024 Orders Only PATIENT PORTAL DO NOT DELETE THIS DEPT USED BY [place] [phone] Allergies Active Allergy Reactions Criticality Noted Date Comments No Known Drug Allergy 08/12/2004 documented as of this encounter (statuses as of 02/20/2024) Medications Medication Sig Dispensed Refills Start Date End Date Status Multi-Day Vitamins Oral Tablet Take by mouth 1 Tablet in the morning. Active documented as of this encounter (statuses as of 02/20/2024) Active Problems Problem Noted Date Diagnosed Date [...] as of this encounter (statuses as of 02/20/2024) Resolved Problems Problem Noted Date Diagnosed Date Resolved Date COVID-19 affecting in third trimester 02/10/2022 03/28/2022 GBS (group B Streptococcus c arrier), +RV culture, currently 01/10/2022 03/28/2022 Disorder of placenta in second trimester 10/04/2021 12/05/2021 Antepartum anemia complicating 07/01/2021 03/28/2022 Overview: HGB 11.2 at [facility], rx iron Rubella non-immune status, antepartum 07/01/2021 03/28/2022 Supervision of normal first 06/28/2021 03/28/2022 Last Assessment & Plan: rhogham given at 28wks 11/13/2021 Suri Galvan LPN Vaginal bleeding in 06/16/2021 06/28/2021 documented as of this encounter (statuses as of 02/20/2024) Immunizations Name Administration Dates Next Due Covid-19 Ad26, Single Dose (Rocio/J&J) 021 Hepatitis B, 20+ yrs 1994,1994,01/30 Meningococcal Conjugate Vacc ine (Menactra/Menveo) 01/23/2010 Meningococcal MCV4P Conjugat e Vaccine (Menactra) 01/23/2010 PPD 02/21/2002 TDAP (age 10 and older)(Boostrix) 11/25/2021,,11/07/2005 Varicella Vaccine (Chicken Pox) 01/23/2010 documented as [...] money to get more. Never true 01/07/2024 [place] Depression Scale Answer Date Recorded [place] Depression Scale Total 6 11/16/2023 The thought [...] Description 03/10/2024 2:15 PM EDT Office Visit Gynecology/Obstetrics Kristina Childress [address] [place] [address] Elif Causey CRNP [address] [place] [address] Health Maintenance Due Date Last Done Comments [...]
--- OUTSIDE RECORDS SUMMARY | 2024-06-16 15:01 | External Medical Summary ---
Author Name Unknown Address Unknown Organization [id number]:[facility] [address] [place] [id number] Laboratory Report Ordering Provider Test Date Status MATT DESAI 03/10/2024 15:42:17 Final Observation Date Value Abnormality Reference (Units ) Status Glucose [Moles/volume] in Serum or Plasma --1 hour post 50 g glucose PO 03/10/2024 15:42:17 120 70-129 (mg/dL) Final Performing Location [facility] [address] [place] [id number]
--- OUTSIDE RECORDS SUMMARY | 2024-06-16 15:01 | External Medical Summary ---
Author Name Unknown Address Unknown Organization [id number]:[facility] [place] - [address] [place] [id number] Laboratory Report Ordering Provider Test Date Status MATT DESAI 03/10/2024 15:42:17 Final Observation Date Value Abnormality Reference (Units ) Status Creatinine 03/10/2024 15:42:17 0.5 0.5-1.0 (mg/dL) Final Glomerular filtration rate/1.73 sq M.predicted [Volume Rate/Area] in Serum, Plasma or Blood by Creatinine-based formula (CKD-EPI) 03/10/2024 15:42:17 >90 >=60 (mL/min) Final eGFR is calculated based on the CKD-EPI 2020 equation. Performing Location [facility] [place] - [address] [place] [id number]
--- OUTSIDE RECORDS SUMMARY | 2024-06-16 15:02 | External Medical Summary | Summary of Care ---
Author Name Unknown Organization [facility] Address [address] [place] [address] Phone [phone] Care Team Providers Care Card Reader Name Role Phone Unavailable Primary Care Provider Unavailabl e Reason for Visit * Reason Comments Return Visit Encounter Details Date Type Department Care Team (Late st Contact Info) Description 12/18/2023 2:45 PM EDT Office Visit Gynecology/Obstetric s Kristina Childress [address] [place] [address] Elif Causey CRNP [address] [place] [address] Encounter for supervision of other normal , unspecified trimester*; Rh negative, antepartum; Obesity in , antepartum Allergies Active Allergy Reactions Criticality Noted Date Comments No Known Drug Allergy 08/12/2004 documented as of this encounter (statuses as of 12/18/2023) Medications Medication Sig Dispensed Refills Start Date End Date Status Multi-Day Vitamins Oral Tablet Take by mouth 1 Tablet in the morning. Active documented as of this encounter (statuses as of 12/18/2023) Active Problems Problem Noted Date Diagnosed Date Encounter for supervision of other normal , unspecified trimester 12/18/2023 Normal intrauterine , antepartum 2023 Obesity in , antepartum 11/16/2023 Last Assessment & Plan: BMI 30.42 at [facility] Class 1 Rh negative, antepartum 07/01/2021 Overview: Rhogam shot 10/08/23 for 1st tri bleeding Acne 10/06/2012 Other allergic rhinitis Overview: ICD-10 update of inactive term Estimated Date of Delivery Comme nts Yes 06/09/2024 Based on last me nstrual period of 09/03/2023 (Exact Date) documented as of this encounter (statuses as of 12/18/2023) Resolved Problems Problem Noted Date Diagnosed Date Resolved Date COVID-19 affecting in third trimester 02/10/2022 03/28/2022 GBS (group B Streptococcus c arrier), +RV culture, currently 01/10/2022 03/28/2022 Disorder of placenta in second trimester 10/04/2021 12/05/2021 Antepartum anemia complicating 07/01/2021 03/28/2022 Overview: HGB 11.2 at [facility], rx iron Rubella non-immune status, antepartum 07/01/2021 03/28/2022 Supervision of normal first 06/28/2021 03/28/2022 Last Assessment & Plan: rhogham given at 28wks 11/13/2021 Suri Galvan LPN Vaginal bleeding in 06/16/2021 06/28/2021 documented as of this encounter (statuses as of 12/18/2023) Immunizations Name Administration Dates Next Due Covid-19 [...] the money to buy more. Never true 10/19/19 Within the past 12 months, t he food you bought just didn't last and you didn't have money to get more. Never true 10/19/2023 [place] Depression Scale Answer Date Recorded [place] Depression Scale Total 6 11/16/2023 The thought of harming myself has occurred to me . Never 11/16/2023 Estimated Date of Delivery Comme nts Yes [...] Sign Reading Time Taken Comments Blood Pressure 116/64 12/18/2023 2:46 PM EDT Pulse - - Temperature - - Respiratory Rate - - Oxygen Saturation - - Inhaled Oxygen Concentration - - Weight 83.9 kg (185 lb) 12/18/2023 2:46 PM EDT Height - - Body Mass Index 30.79 12/09/2023 12:59 PM EDT documented in this encounter Progress Notes * Elif Causey CRNP - 12/18/2023 2:54 PM EDT 15w1d No vaginal bleeding since visit last week. +FM. Anatomy u/s with next visit in 5 weeks. CIRO Lares * Jasmina Valdez LPN - 12/18/2023 2:46 PM EDT 15w1d No vb since 12/08 appt documented in this encounter Plan of Treatment Upcoming Encounters Date Type Department Care Team (Late st Contact Info) Description 01/21/2024 1:15 PM EDT Imaging Radiology [facility] 2nd Floor, [place] [address] [facility] [place] [address] 01/21/2024 2:45 PM EDT Office Visit Gynecology/Obstetrics [facility] [address] [facility] [place] [address] Kristy Brooks CNM [address] [place] [address] Scheduled Orders Name Type Priority Associated Diagnoses Orde r Schedule US PREG SINGLE/1ST GEST, 14 WEEKS OR LATER Medical Imaging Routine Encounter for supervision of other normal , unspecified trimester Expected: 01/18/2024 (Approximate), Expires: 01/17/2025 Health Maintenance Due Date Last Done Comments Depression Screening 05/28/2021 05/28/2020 COVID-19 Vaccine ( season) 2023 03/01/2021 Influenza Vaccine (FLU shot) (Season Ended) 2024 Pap Smear 04/07/2026 04/07/2023, 06/27, 10/21/2017 DTaP,Tdap,and Td Vaccines (9 - Td or Tdap) 11/26/2031 11/25/2021, 11/13/2021, 11/07/2005, Additional history exists Hepatitis B Completed 1994, 03/1995, 1994, Additional history exists MENINGOCOCCAL (MENACTRA/MENVEO) Aged Out 01/23/2010, 01/23/2010 No longer eligibl e based on patient's age to complete this topic GARDASIL-HPV IMMUNIZATION SERIES Aged Out No longer eligible based on [...]
--- OUTSIDE RECORDS SUMMARY | 2024-06-16 15:02 | External Medical Summary | Summary of Care ---
Author Name Unknown Organization [facility] Address [address] [place] [address] Phone [phone] Care Team Providers Care Hot Oiler Name Role Phone Unavailable Primary Care Provider Unavailabl e Reason for Visit * Reason Comments Return Visit Encounter Details Date Type Department Care Team (Late st Contact Info) Description 01/21/2024 2:45 PM EDT Office Visit Gynecology/Obstetric [facility] [address] [facility] [place] [address] Kristy Brooks, [facility] [address] [facility] [place] [phone] Rh negative, antepartum*; Obesity in , antepartum; Encounter for supervision of other normal , unspecified trimester Allergies Active Allergy Reactions Criticality Noted Date Comments No Known Drug Allergy 08/12/2004 documented as of this encounter (statuses as of 01/21/2024) Medications Medication Sig Dispensed Refills Start Date End Date Status Multi-Day Vitamins Oral Tablet Take by mouth 1 Tablet in the morning. Active documented as of this encounter (statuses as of 01/21/2024) Active Problems Problem Noted Date Diagnosed Date Encounter for supervision of other normal , unspecified trimester 12/18/2023 Normal intrauterine , antepartum 2023 Obesity in , antepartum 11/16/2023 Last Assessment & Plan: BMI 30.42 at [facility] Class 1 Rh negative, antepartum 07/01/2021 Overview: Rhogam shot 10/08/23 for 1st tri bleeding Acne 10/06/2012 Other allergic rhinitis Overview: ICD-10 update of inactive term Estimated Date of Delivery Comme nts Yes 06/09/2024 Based on last me nstrual period of 09/03/2023 (Exact Date) documented as of this encounter (statuses as of 01/21/2024) Resolved Problems Problem Noted Date Diagnosed Date Resolved Date COVID-19 affecting in third trimester 02/10/2022 03/28/2022 GBS (group B Streptococcus c arrier), +RV culture, currently 01/10/2022 03/28/2022 Disorder of placenta in second trimester 10/04/2021 12/05/2021 Antepartum anemia complicating 07/01/2021 03/28/2022 Overview: HGB 11.2 at [facility], rx iron Rubella non-immune status, antepartum 07/01/2021 03/28/2022 Supervision of normal first 06/28/2021 03/28/2022 Last Assessment & Plan: rhogham given at 28wks 11/13/2021 Suri Galvan LPN Vaginal bleeding in 06/16/2021 06/28/2021 documented as of this encounter (statuses as of 01/21/2024) Immunizations Name Administration Dates Next Due Covid-19 [...] money to get more. Never true 01/07/2024 [place] Depression Scale Answer Date Recorded [place] Depression Scale Total 6 11/16/2023 The thought [...] Sign Reading Time Taken Comments Blood Pressure 114/64 01/21/2024 2:36 PM EDT Pulse - - Temperature - - Respiratory Rate - - Oxygen Saturation - - Inhaled Oxygen Concentration - - Weight 83.9 kg (185 lb) 01/21/2024 2:36 PM EDT Height 165.1 cm (5' 5") 01/21/2024 2:36 PM EDT Body Mass Index 30.79 01/21/2024 2:36 PM EDT documented in this encounter Progress Notes * Kristy Brooks CNM - 01/21/2024 2:45 PM EDT Gina Mari is a 28 year old female here for her routine OB appointment at 20w0d Her Estimated Date of Delivery: 06/09/24 REVIEW OF SYSTEMS: She affirms movement. Denies vaginal bleeding, LOF, contractions, N/V, headaches Having some itching, she is pretty sure it is an exacerbation of her known dermatitis, does not affect the palms or soles of feet PHYSICAL EXAM: Filed Vitals: 01/21/24 1436 BP: 114/64 Weight: 83.9 kg (185 lb) Height: 1.651 m (5' 5") +FHT 140s Fundal height at the umbilicus ASSESSMENT/PLAN: 1. Rh negative, antepartum Rhogam at 28w 2. Obesity in , antepartum 3. Encounter for supervision of other normal , unspecified trimester - had anatomy u/s today - results WNLs - RTO in 4 weeks Kristy Brooks CNM * Jasmina Valdez LPN - 01/21/2024 2:40 PM EDT 20w0d Had anatomy today Itchy all over raffy legs documented in this encounter Plan of Treatment Upcoming Encounters Date Type Department Care Team (Late st Contact Info) Description 02/18/2024 3:00 PM EDT Office Visit Gynecology/Obstetrics [facility] [address] [facility] [place] [address] Lesly Moreland MD [address] [place] [address] [place] [address] Health Maintenance Due Date Last Done Comments Depression Screening 05/28/2021 05/28/2020 COVID-19 Vaccine (2 season) 2023 03/01/2021 Influenza Vaccine (FLU shot) [...]
--- OUTSIDE RECORDS SUMMARY | 2024-06-16 15:02 | External Medical Summary | Summary of Care ---
Author Name Unknown Organization [facility] Address [address] [place] [address] Phone [phone] Care Team Providers Care Carpenter Helper [employer] Floor[employer] Name Role Phone Unavailable Primary Care Provider Unavailabl e Reason for Visit * Reason Comments Return Visit Encounter Details Date Type Department Care Team (Late st Contact Info) Description 02/18/2024 4:15 PM EDT Office Visit Gynecology/Obstetric [facility] [address] [facility] [place] [address] [facility]land [facility] [address] [facility] [phone] 24 weeks gestation of *; Rh negative, antepartum; Obesity in , antepartum; Encounter for supervision of other normal , unspecified trimester Allergies Active Allergy Reactions Criticality Noted Date Comments No Known Drug Allergy 08/12/2004 documented as of this encounter (statuses as of 02/18/2024) Medications Medication Sig Dispensed Refills Start Date End Date Status Multi-Day Vitamins Oral Tablet Take by mouth 1 Tablet in the morning. Active documented as of this encounter (statuses as of 02/18/2024) Active Problems Problem Noted Date Diagnosed Date Encounter for supervision of other normal , unspecified trimester 12/18/2023 Normal intrauterine , antepartum 2023 Obesity in , antepartum 11/16/2023 Last Assessment & Plan: BMI 30.42 at [facility] Class 1 Rh negative, antepartum 07/01/2021 Overview: Rhogam shot 10/08/23 for 1st tri bleeding Acne 10/06/2012 Other allergic rhinitis Overview: ICD-10 update of inactive term Estimated Date of Delivery Comme nts Yes 06/09/2024 Based on last me nstrual period of 09/03/2023 (Exact Date) documented as of this encounter (statuses as of 02/18/2024) Resolved Problems Problem Noted Date Diagnosed Date Resolved Date COVID-19 affecting in third trimester 02/10/2022 03/28/2022 GBS (group B Streptococcus c arrier), +RV culture, currently 01/10/2022 03/28/2022 Disorder of placenta in second trimester 10/04/2021 12/05/2021 Antepartum anemia complicating 07/01/2021 03/28/2022 Overview: HGB 11.2 at [facility], rx iron Rubella non-immune status, antepartum 07/01/2021 03/28/2022 Supervision of normal first 06/28/2021 03/28/2022 Last Assessment & Plan: rhogham given at 28wks 11/13/2021 Suri Galvan LPN Vaginal bleeding in 06/16/2021 06/28/2021 documented as of this encounter (statuses as of 02/18/2024) Immunizations Name Administration Dates Next Due Covid-19 [...] money to get more. Never true 01/07/2024 [place] Depression Scale Answer Date Recorded [place] Depression Scale Total 6 11/16/2023 The thought [...] Sign Reading Time Taken Comments Blood Pressure 132/74 02/18/2024 3:54 PM EDT Pulse - - Temperature - - Respiratory Rate - - Oxygen Saturation - - Inhaled Oxygen Concentration - - Weight 84.8 kg (187 lb) 02/18/2024 3:54 PM EDT Height 165.1 cm (5' 5") 02/18/2024 3:54 PM EDT Body Mass Index 31.12 02/18/2024 3:54 PM EDT documented in this encounter Progress Notes * Lesly Moreland MD - 02/18/2024 4:15 PM EDT Patient is 29 year old at 24 0/7 weeks who presents for [facility] visit Denies contractions, leaking of fluid, or vaginal bleeding. Noted good movement Denies headache, blurry vision, RUQ or epigastric pain. Planning to breast feeding Problem list reviewed BP 132/74 | Ht 1.651 m (5' 5") | Wt 84.8 kg (187 lb) | LMP 09/03/2023 (Exact Date) | BMI 31.12 kg/m | BSA 1.97 m FH: 23 FHT: 144 Plan: Labor and preeclampsia warnings reviewed 3rd trimester labs pended today Declined breast pump order today RTC 3 weeks V Aniceto CHUNG PhD documented in this encounter Nursing Notes * Tabitha Guillaume LPN - 02/18/2024 3:59 PM EDT 24w0d Denies concerns documented in this encounter Plan of Treatment Upcoming Encounters Date Type Department Care Team (Late st Contact Info) Description 03/10/2024 2:15 PM EDT Office Visit Gynecology/Obstetrics Kristina Childress [address] [place] [address] Elif Causey CRNP [address] [place] [address] Scheduled Orders Name Type Priority Associated Diagnoses Orde r Schedule CBC WITH WBC DIFFERENTIAL AND ANEMIA REFLEX WORKUP Lab Routine 24 weeks gestation of Expected: 02/18/2024, Expires: 02/17/2025 SYPHILIS ANTIBODY SCREEN WITH REFLEX TO RPR Lab Routine 24 weeks gestation of Expected: 02/18/2024, Expires: 02/17/2025 50-G GESTATIONAL GLUCOSE, 1 HOUR Lab Routine 24 weeks gestation of Expected: 02/18/2024, Expires: 02/17/2025 Health Maintenance Due Date Last Done Comments [...] Visit Diagnoses Diagnosis 24 weeks gestation of - Primary state, incidental Rh negative, antepartum Rhesus isoimmunization affecting management of mother, antepartum condition Obesity in , antepartum Obesity complicating , childbirth, or the puerperium, antepartum condition or complication Encounter for supervision of other normal , unspecified trimester documented in this encounter
[2024-06-17] MEDS: bisacodyL 5 MG TABEC PO SCH (00:30)
[2024-06-17 06:11] LABS: Hematocrit (blood only) 33.3 % (37.0-47.0); Hemoglobin 11.2 g/dl (12.0-16.0)
[2024-06-17 09:06] VITALS: O2SAT 97
[2024-06-17 10:11] VITALS: RESP 16; TEMP 97.9
[2024-06-17 10:44] VITALS: BP 128/86; PULSE 84
--- NOTE | 2024-06-17 10:54 | Obstetrical Progress Note ---
Date of Service June 17, 2024 Assessment & Plan Admission and Anticipated Discharge Date Admission Date: June 15, 2024 Subjective Patient is seen and examined. She feels well, no complaints. Ambulating without dizziness Voiding without difficulty Tolerating regular diet with out N&V Bleeding is minimal No fever/ chills/ CP/ SOB/ N&V/ Leg pain Breast feeding without problems Vital Signs Temp Pulse Pulse Resp BP BP BP 06/17/24 10:42 36.6 C 84 16 129/85 128/86 06/17/24 10:16 36.6 C 72 16 124/83 06/17/24 10:08 36.6 C 72 16 124/83 06/17/24 07:35 06/17/24 07:35 36.5 C 84 20 129/85 06/16/24 22:56 36.4 C L 85 16 128/86 Pulse Ox O2 Del Method 06/17/24 10:42 97 06/17/24 10:16 97 06/17/24 10:08 97 06/17/24 07:35 Room Air 06/17/24 07:35 97 Room Air 06/16/24 22:56 98 Room Air Lab Results 06/15/24 06/16/24 06/17/24 Range/Units 15:44 05:29 05:43 WBC 7.88 11.08 H (4.8-10.8) K/ul RBC 4.64 4.19 L (4.20-5.40) M/uL Hgb 12.9 11.7 L 11.2 L (12.0-16.0) g/dl Hct 38.2 34.4 L 33.3 L (37.0-47.0) % MCV 82.3 82.1 (80.0-100.0) fL MCH 27.8 27.9 (25.0-34.0) pg MCHC 33.8 34.0 (32.0-36.0) g/dL RDW Std Deviation 47.8 H 46.9 H (36.4-46.3) fL RDW Coeff of Yogi 15.9 H 15.7 H (11.5-14.5) % Plt Count 223 202 (130-400) K/uL MPV 9.2 L 9.5 (9.4-12.4) fL Treponema pallidum Ab Negative (Negative) Blood Type A Negative Antibody Screen NEGATIVE Screen Negative (Negative) PE: General: Alert, orientedx3, NAD Abd: soft, NT, fundus firm, below Umbilicus Perineum intact, Lochia rubra minimal Ext; NT, no edema AP: 29 yo s/p , ppd# 2 VSS Afebrile doing well Continue routine care All questions were answered D/C home , f/u in office Results & Data Vital Signs (Past 12 Hours) Vital Signs Temp Pulse Pulse Resp BP BP BP 06/17/24 10:42 36.6 C 84 16 129/85 128/86 06/17/24 10:16 36.6 C 72 16 124/83 06/17/24 10:08 36.6 C 72 16 124/83 06/17/24 07:35 06/17/24 07:35 36.5 C 84 20 129/85 06/16/24 22:56 36.4 C L 85 16 128/86 Pulse Ox O2 Del Method 06/17/24 10:42 97 06/17/24 10:16 97 06/17/24 10:08 97 06/17/24 07:35 Room Air 06/17/24 07:35 97 Room Air 06/16/24 22:56 98 Room Air
== END 2024-06-17 11:40 | disposition home health service (06) | DRG 807 ==
LOC: 4S1 13:08 → 4E2 06-16 02:57